=== PATIENT | female | born 1990 | race Caucasian/White ===

== ENCOUNTER → 2019-02-10 14:11 | Outpatient (CLI) | payer OTHER, SELFPAY | PROVIDERS: PCP Family Medicine; Visit Provider Nurse Practitioner | DX: G47.30 Sleep apnea, unspecified (principal); R06.83 Snoring | CPT/HCPCS: 95806 ==

== ENCOUNTER → 2019-05-26 11:44 | Outpatient (CLI) | payer OTHER, SELFPAY ==
--- NOTE | 2019-05-26 11:48 | XR_ITS ---
PROCEDURE: XR CHEST 2V CLINICAL HISTORY: SOB COMPARISON: No exams were available for comparison FINDINGS: The cardiomediastinal silhouette and pulmonary vascularity are within normal limits. The lungs are clear without infiltrates, suspicious nodules, or pleural effusions. Calcified granuloma is present in the right middle lobe. No acute bony findings. IMPRESSION: No acute findings. Dictated by: Dom Madison MD 05/26/2019 12:09 Electronically signed by Dom Madison MD in [place] 05/26/2019 12:09
--- NOTE | 2019-05-26 12:10 | ECG_ITS ---
APPROVED REPORT Exam: Resting ECG HR:104 bpm ECG Measurements Heart Rate 104 AXES MS 162 P 44 QRSd 94 QRS 69 QT 346 T 32 QTc 454 <Conclusion> Sinus tachycardia Late r wave progression - unchanged from prior Abnormal ECG Electronically signed by : Bc Ross, 05/26/2019 17:22:54
== END ==
PROVIDERS: PCP Nurse Practitioner; Visit Provider Nurse Practitioner
DX: R07.9 Chest pain, unspecified (principal); R06.02 Shortness of breath
CPT/HCPCS: 71046; 93005

== ENCOUNTER → 2019-05-31 12:49 | Outpatient (CLI) | payer OTHER, SELFPAY ==
--- NOTE | 2019-05-31 12:53 | CA_ITS ---
APPROVED REPORT EXAM: Comprehensive 2D, Doppler, and color-flow Echocardiogram Outside Barrel Lathe Operator: Mohini Kim RVT Ht: 5 ft 4 in Wt: 313lbs BSA: 2.37 BP: 123/64 mmHg Indications: Chest Pain, Obesity, Palpitations M-Mode Dimensions RVDd 1.90 cm (0.9-2.6) LA Diam 2.70 cm (1.9-4.0) LVDd 4.50 cm (3.5-5.7) Ao Diam 2.30 cm (2.0-3.7) AV Cusp 2.00 cm (1.5-2.6) IVSd 1.10 cm (0.6-1.1) PWd 0.90 cm (0.6-1.1) EF (Teich) 81.10% FS 49.60% Left Ventricle Right atrium is normal size, left ventricle is normal size, there is no concentric left ventricular hypertrophy, visually estimated ejection fraction 55% with no regional wall motion abnormality. Diastolic parameters are within normal range. Right Ventricle Right atrium right ventricular normal size and contractility. Aortic Valve Aortic valve is grossly normal. There is no aortic stenosis or aortic insufficiency. Mitral Valve Mitral valve is grossly normal, there is trace mitral regurgitation. Tricuspid Valve Tricuspid valve is grossly normal, there is trace tricuspid regurgitation. Pulmonic Valve Pulmonic valve is poorly visualized. Great Vessels Aortic root is normal size. Pericardium No significant pericardial effusion noted. Conclusion 1. Normal left ventricular size, preserved left ventricular systolic function, visually estimated ejection fraction 55% with no regional wall motion abnormality. Diastolic parameters are within normal range. 2. Trace mitral and tricuspid regurgitation. 3. No significant pericardial effusion noted. Electronically signed by : Elliott Gutierrez, 06/01/2019 13:31:52
== END ==
PROVIDERS: PCP Nurse Practitioner; Visit Provider Nurse Practitioner
DX: R00.2 Palpitations (principal); R07.9 Chest pain, unspecified
CPT/HCPCS: 93225; 93226; 93306

== ENCOUNTER → 2019-08-29 08:25 | Outpatient (CLI) | payer OTHER, SELFPAY ==
[2019-08-29 09:27] LABS: Basophils # 0.1 K/mm3 (0-0.2); Basophils % 0.7 % (0.1-2.0); Eosinophils # 0.2 K/mm3 (0.0-0.4); Eosinophils % 1.9 % (0.1-12.0); Hematocrit 38.1 % (37.0-47.0); Hemoglobin 12.1 g/dL (12.2-16.2); Lymphocytes % 22.1 % (10-50); Mean Corpuscular HGB Conc 31.7 g/dL (31.8-35.4); Mean Corpuscular Hemoglobin 25.5 pg (27.0-31.2); Mean Corpuscular Volume 80.4 fl (81-99); Mean Platelet Volume 7.9 fl (7.4-10.4); Monocytes # 0.4 K/mm3 (0.1-1.0); Monocytes % 4.2 % (1.7-9.3); Neutrophils # 6.4 K/mm3 (1.8-7.8); Neutrophils % 71.1 % (37.0-80.0); Platelet Count 305 K/mm3 (142-424); Red Blood Count 4.74 M/mm3 (4.20-5.40); Red Cell Distribution Width 14.9 % (11.5-17.5); White Blood Count 8.9 K/mm3 (4.8-10.8)
[2019-09-01 00:07] LABS: F002-IgE Milk <0.10 kU/L (Class 0); F003-IgE Codfish <0.10 kU/L (Class 0); F017-IgE Hazelnut (Filbert) <0.10 kU/L (Class 0); F018-IgE Brazil Nut <0.10 kU/L (Class 0); F020-IgE Almond <0.10 kU/L (Class 0); F024-IgE Shrimp <0.10 kU/L (Class 0); F040-IgE Tuna <0.10 kU/L (Class 0); F041-IgE Salmon <0.10 kU/L (Class 0); F147-IgE Flounder <0.10 kU/L (Class 0); F256-IgE Walnut <0.10 kU/L (Class 0); F338-IgE Scallop <0.10 kU/L (Class 0); Immunoglobulin E, Total 243 IU/mL (6-495)
[2019-09-01 09:36] LABS: Vitamin D 25 Hydroxy 21.5 ng/mL (30.0-100.0)
[2019-09-01 10:35] LABS: F013-IgE Peanut <0.10 kU/L (Class 0); F369-IgE Catfish <0.10 kU/L (Class 0)
[2019-09-05 17:08] LABS: F352 IgE Ara h8 <0.10 kU/L (Class 0); F447 IgE Ara h6 <0.10 kU/L (Class 0)
[2019-09-07 06:36] LABS: F092- IgE Banana 0.42 kU/L (Class I)
== END ==
PROVIDERS: Visit Provider Allergy & Immunology
DX: J45.50 Severe persistent asthma, uncomplicated (principal); T78.1XXA Other adverse food reactions, not elsewhere classified, initial encounter
CPT/HCPCS: 36415; 82652; 82785; 85025; 86003; 86008

== ENCOUNTER → 2021-01-22 11:25 | Outpatient (CLI) | payer OTHER, SELFPAY | PROVIDERS: PCP Nurse Practitioner; Visit Provider Nurse Practitioner | DX: Z20.822 Contact with and (suspected) exposure to COVID-19 (principal) | CPT/HCPCS: U0003 ==

== ENCOUNTER 2021-01-23 08:51 | Outpatient (CLI) | payer OTHER, SELFPAY ==
[2021-01-23] VITALS (7 sets, daily range): BP systolic 120–143; BP diastolic 65–98; PULSE 97–108; RESP 16–20; TEMP 36.8–37.3; O2SAT 97–98
== END 2021-01-23 11:43 | disposition home or self-care (01) ==
PROVIDERS: PCP Nurse Practitioner; Visit Provider Nurse Practitioner
DX: U07.1 COVID-19 (principal)
CPT/HCPCS: 96365

== ENCOUNTER → 2022-02-12 06:00 | Outpatient (CLI) | payer OTHER, SELFPAY ==
[2022-02-11 17:40] LABS: Basophils # 0.1 K/mm3 (0-0.2); Basophils % 1.5 % (0.1-2.0); Eosinophils # 0.1 K/mm3 (0.0-0.4); Hematocrit 42.9 % (37.0-47.0); Hemoglobin 13.3 g/dL (12.2-16.2); Lymphocytes % 27.3 % (10-50); Mean Corpuscular HGB Conc 31.1 g/dL (31.8-35.4); Mean Corpuscular Hemoglobin 26.2 pg (27.0-31.2); Mean Corpuscular Volume 84.4 fl (81-99); Mean Platelet Volume 10.5 fl (7.4-10.4); Monocytes # 0.4 K/mm3 (0.1-1.0); Monocytes % 5.7 % (1.7-9.3); Neutrophils # 4.6 K/mm3 (1.8-7.8); Neutrophils % 63.5 % (37.0-80.0); Platelet Count 187 K/mm3 (142-424); Red Blood Count 5.08 M/mm3 (4.20-5.40); Red Cell Distribution Width 15.4 % (11.5-17.5); White Blood Count 7.3 K/mm3 (4.8-10.8)
[2022-02-11 19:31] LABS: Alanine Aminotransferase 37 U/L (12-78); Albumin/Globulin Ratio 1.2 (1.1-1.8); Alkaline Phosphatase 141 U/L (38-126); Aspartate Amino Transferase 34 U/L (14-36); Blood Urea Nitrogen 11 mg/dl (7-17); Calcium 9.4 mg/dl (8.4-10.2); Carbon Dioxide 24 mmol/L (22.0-30.0); Chloride 104 mmol/L (98-107); Estimated Glomerular Filt Rate 145 ml/min (>60); GFR (African American) 175 ML/MIN (>60); Globulin 3.4 g/dL (1.3-3.2); Glucose 65 mg/dl (74-100); Sodium 140 mmol/L (136-145); Total Protein,Serum 7.4 g/dl (6.3-8.2)
[2022-02-11 19:52] LABS: Bilirubin,Total < 0.1 mg/dl (0.2-1.3)
[2022-02-11 20:01] LABS: Thyroid Stimulating Hormone 1.45 uIU/mL (0.465-4.68)
[2022-02-11 20:20] LABS: Vitamin B12 602 pg/mL (239-931)
[2022-02-11 20:42] LABS: Hemoglobin A1C 5.7 % (4.0-6.0)
== END ==
PROVIDERS: PCP Nurse Practitioner; Visit Provider Nurse Practitioner
DX: F41.8 Other specified anxiety disorders (principal); K21.9 Gastro-esophageal reflux disease without esophagitis; E55.9 Vitamin D deficiency, unspecified; J30.9 Allergic rhinitis, unspecified; Z13.1 Encounter for screening for diabetes mellitus; Z79.899 Other long term (current) drug therapy
CPT/HCPCS: 80053; 80164; 82306; 82607; 83036; 84443; 85025

== ENCOUNTER → 2022-05-26 09:09 | Outpatient (CLI) | payer OTHER, SELFPAY ==
[2022-05-26 18:12] LABS: Chloride 99 mmol/L (98-107)
[2022-05-26 18:13] LABS: Potassium 4.4 mmoL/L (3.5-5.1); Sodium 139 mmol/L (136-145)
[2022-05-26 18:15] LABS: Alanine Aminotransferase 24 U/L (12-78); Albumin Level 4.1 g/dl (3.5-5.0); Albumin/Globulin Ratio 1.1 (1.1-1.8); Alkaline Phosphatase 143 U/L (38-126); Anion Gap 17.4 mEq/L (5-15); Aspartate Amino Transferase 31 U/L (14-36); Bilirubin,Total 0.5 mg/dl (0.2-1.3); Blood Urea Nitrogen 7 mg/dl (7-17); Carbon Dioxide 27 mmol/L (22.0-30.0); Estimated Glomerular Filt Rate 145 ml/min (>60); GFR (African American) 175 ML/MIN (>60); Globulin 3.6 g/dL (1.3-3.2); Total Protein,Serum 7.7 g/dl (6.3-8.2)
[2022-05-26 18:16] LABS: Calcium 9.4 mg/dl (8.4-10.2); Chol/HDL Ratio 5.4 (1-3.5); Cholesterol 217 mg/dl (140-200); Glucose 82 mg/dl (74-100); HDL Cholesterol 40 mg/dl (40-60); Triglycerides 194 mg/dl (30-150); VLDL Cholesterol 39 mg/dL (0-40)
[2022-05-26 18:27] LABS: Direct LDL Cholesterol 121.19 mg/dL (100-129)
[2022-05-26 18:46] LABS: Thyroid Stimulating Hormone 1.69 uIU/mL (0.465-4.68)
== END ==
PROVIDERS: PCP Nurse Practitioner; Visit Provider Nurse Practitioner
DX: Z00.00 Encounter for general adult medical examination without abnormal findings (principal); Z13.1 Encounter for screening for diabetes mellitus; Z13.220 Encounter for screening for lipoid disorders; Z13.228 Encounter for screening for other metabolic disorders; Z13.29 Encounter for screening for other suspected endocrine disorder; Z79.899 Other long term (current) drug therapy
CPT/HCPCS: 80053; 80061; 84443

== ENCOUNTER → 2022-05-29 13:10 | Outpatient (CLI) | payer OTHER, SELFPAY ==
[2022-05-29 14:20] LABS: Basophils # 0.1 K/mm3 (0-0.2); Basophils % 1.1 % (0.1-2.0); Eosinophils # 0.3 K/mm3 (0.0-0.4); Hematocrit 40.2 % (37.0-47.0); Lymphocytes % 22.1 % (10-50); Mean Corpuscular HGB Conc 32.4 g/dL (31.8-35.4); Mean Corpuscular Hemoglobin 26.8 pg (27.0-31.2); Mean Corpuscular Volume 82.8 fl (81-99); Mean Platelet Volume 8.5 fl (7.4-10.4); Monocytes # 0.5 K/mm3 (0.1-1.0); Monocytes % 5.1 % (1.7-9.3); Neutrophils # 6.3 K/mm3 (1.8-7.8); Neutrophils % 68.7 % (37.0-80.0); Platelet Count 224 K/mm3 (142-424); Red Blood Count 4.85 M/mm3 (4.20-5.40); Red Cell Distribution Width 15.3 % (11.5-17.5); White Blood Count 9.1 K/mm3 (4.8-10.8)
[2022-05-29 14:28] LABS: Hemoglobin A1C 5.8 % (4.0-6.0)
== END ==
PROVIDERS: PCP Nurse Practitioner; Visit Provider Nurse Practitioner
DX: Z00.00 Encounter for general adult medical examination without abnormal findings (principal); Z13.1 Encounter for screening for diabetes mellitus; Z13.220 Encounter for screening for lipoid disorders; Z13.228 Encounter for screening for other metabolic disorders; Z13.29 Encounter for screening for other suspected endocrine disorder; Z79.899 Other long term (current) drug therapy
CPT/HCPCS: 36415; 83036; 85025

== ENCOUNTER → 2022-10-19 09:50 | Outpatient (CLI) | payer OTHER, SELFPAY ==
[2022-10-19 18:13] LABS: Hemoglobin A1C 8.2 % (4.0-6.0)
[2022-10-19 18:16] LABS: Chloride 105 mmol/L (98-107); Sodium 139 mmol/L (136-145)
[2022-10-19 18:18] LABS: Alanine Aminotransferase 58 U/L (12-78); Alkaline Phosphatase 129 U/L (38-126); Aspartate Amino Transferase 56 U/L (14-36); Bilirubin,Total 0.6 mg/dl (0.2-1.3); Blood Urea Nitrogen 10 mg/dl (7-17); Estimated Glomerular Filt Rate 117 ml/min (>60); GFR (African American) 142 ML/MIN (>60)
[2022-10-19 18:19] LABS: Albumin Level 4.1 g/dl (3.5-5.0); Albumin/Globulin Ratio 1.1 (1.1-1.8); Calcium 9.1 mg/dl (8.4-10.2); Carbon Dioxide 20 mmol/L (22.0-30.0); Chol/HDL Ratio 5.2 (1-3.5); Cholesterol 203 mg/dl (140-200); Globulin 3.6 g/dL (1.3-3.2); Glucose 104 mg/dl (74-100); HDL Cholesterol 39 mg/dl (40-60); Total Protein,Serum 7.7 g/dl (6.3-8.2); Triglycerides 179 mg/dl (30-150); VLDL Cholesterol 36 mg/dL (0-40)
[2022-10-19 18:30] LABS: Direct LDL Cholesterol 130.27 mg/dL (100-129)
== END ==
LOC: LAB.DROPOF 10-20 06:27
PROVIDERS: PCP Nurse Practitioner; Visit Provider Nurse Practitioner
DX: E78.5 Hyperlipidemia, unspecified (principal); R73.01 Impaired fasting glucose; E66.9 Obesity, unspecified; Z68.43 Body mass index [BMI] 50.0-59.9, adult
CPT/HCPCS: 80053; 80061; 83036

== ENCOUNTER → 2022-10-21 13:45 | Outpatient (CLI) | payer OTHER, SELFPAY ==
--- NOTE | 2022-10-21 13:45 | US_ITS ---
PROCEDURE INFORMATION: Exam: US Left Breast, Complete, Abscess Evaluation Exam date and time: 10/21/2022 2:23 PM Age: 31 years old Clinical indication: Left breast palpable lump with associated inflammation. Concern for abscess TECHNIQUE: Imaging protocol: Left Ultrasound of the breast with image documentation. All quadrants and retroareolar regions evaluated. Exam focused on the search and evaluation for abscess. Exam is an emergent request and a non-BIRADS study. COMPARISON: No relevant prior studies available. FINDINGS: Breast: Intradermal hypoechoic 0.7 x 0.7 x 0.3 cm structure has features of a inflamed sebaceous cyst. Circumscribed echogenic structures diagnostic of benign lipomas measure 1.8 cm along the 10 o'clock axis 6 cm from the nipple and 1.0 cm along the 8 o'clock axis 7 cm from the nipple and 0.7 cm left 5 o'clock 7 cm from the nipple No suspicious solid or cystic mass is present. No architectural distortion or shadowing is present. No axillary adenopathy is present. IMPRESSION: The palpable lump correlates with a subcentimeter intradermal cystic lesion with features of a sebaceous cyst. No suspicious subcutaneous or parenchymal mass/collection is present There are several benign lipomas throughout the breast
== END ==
LOC: RAD 13:45
PROVIDERS: PCP Nurse Practitioner; Visit Provider Nurse Practitioner
DX: N61.1 Abscess of the breast and nipple (principal)
CPT/HCPCS: 76641

== ENCOUNTER 2022-10-24 15:05 | Emergency (ER) | payer OTHER, SELFPAY ==
[2022-10-24 15:15] VITALS: BP 138/81; PULSE 87; RESP 18; TEMP 36.9; O2SAT 98; BMI 59.5
--- NOTE | 2022-10-24 15:27 | EXP.UTC ---
Discharge Plan Disposition Patient Disposition: Home, Self-Care Condition: Good Prescriptions Prescriptions: New hydroxyzine HCl 25 mg tablet 25 mg PO TID PRN (Reason: itching) Qty: 30 0RF triamcinolone acetonide 0.5 % cream 1 applic topical TID Qty: 30 0RF No Action albuterol sulfate 90 mcg/actuation aerosol powdr breath activated 2 inh inhalation Q4-6H PRN (Reason: shortness of breath or wheezing) Qty: 1 1RF medroxyprogesterone 10 mg tablet 10 mg PO DAILY topiramate 25 mg tablet 25 mg PO BID Qty: 60 2RF lamotrigine 25 mg tablet 25 mg PO .COMPLEX Qty: 60 0RF Rx Instructions: 25 mg orally take one tablet daily x 14 days, then increase to 2 tablets daily x 7 days, then increase to 3 tablets daily x 7 days omeprazole 20 mg capsule,delayed release(DR/EC) 20 mg PO DAILY Qty: 90 1RF montelukast 10 mg tablet See Rx Instructions .ROUTE .COMPLEX Qty: 90 1RF Dose Instruction: TAKE 1 TABLET BY MOUTH EVERY DAY Rx Instructions: TAKE 1 TABLET BY MOUTH EVERY DAY epinephrine [EpiPen 2-Quan] 0.3 mg/0.3 mL auto-injector 0.3 mg IM Q5-15M PRN (Reason: anaphylaxis) Qty: 2 1RF Rx Instructions: do not exceed 3 doses per episode metformin 500 mg tablet extended release 24 hr 500 mg PO DAILY Qty: 30 2RF atorvastatin 10 mg tablet 10 mg PO DAILY Qty: 30 2RF (DME) Blood Glucose Test Strip See Rx Instructions .MEDSUPPLY Qty: 50 11RF Rx Instructions: As directed (DME) blood-glucose meter [Blood Glucose Monitoring] Kit See Rx Instructions .MEDSUPPLY Qty: 1 0RF Rx Instructions: As directed (DME) lancets Misc See Rx Instructions .MEDSUPPLY Qty: 100 11RF Rx Instructions: As directed Referrals Follow up/Referrals: Christie Mora APRN [Primary Care Provider] - See instructions Clinical Impressions Clinical Impression: Allergic drug rash Instructions Patient Instructions: DI for Rash Discharge ED Provider: Marylin Blue [facility] HPI General Stated complaint: rash on neck and arms from allergic reaction Time Seen by Provider: 10/24/22 15:26 History of Present Illness Provider Complaint: Pt relates that 4 days ago she too Lamictal and broke out in a rash on her neck and arms. She denies taking the medication since and relates that she took Benadryl and her arms look much better. She continues to have a large rash in the front of her neck that itches. Related Data Home Medications Medication Instructions Recorded Confirmed medroxyprogesterone 10 mg tablet 10 mg PO DAILY 05/26/22 10/19/22 Previous Rx's Medication Instructions Recorded albuterol sulfate 90 mcg/actuation 2 inh inhalation Q4-6H PRN 03/09/22 breath activated powder inhaler shortness of breath or wheezing #1 ea montelukast 10 mg tablet See Rx Instructions .Route 06/23/22 .COMPLEX #90 tabs omeprazole 20 mg capsule,delayed 20 mg PO DAILY #90 caps 06/23/22 release topiramate 25 mg tablet 25 mg PO BID #60 tabs 09/21/22 epinephrine 0.3 mg/0.3 mL 0.3 mg (0.3 mL) IM Q5-15M PRN 10/08/22 injection, auto-injector (EpiPen anaphylaxis #2 ea 2-Quan) lamotrigine 25 mg tablet 25 mg PO .COMPLEX #60 tabs 10/19/22 atorvastatin 10 mg tablet 10 mg PO DAILY #30 tabs 10/20/22 blood sugar diagnostic (Blood #50 ea 10/20/22 Glucose Test strips) blood-glucose meter (Blood Glucose #1 ea 10/20/22 Monitoring kit) lancets #100 ea 10/20/22 metformin 500 mg tablet,extended 500 mg PO DAILY #30 tabs 10/20/22 release 24 hr hydroxyzine HCl 25 mg tablet 25 mg PO TID PRN itching #30 tabs 10/24/22 triamcinolone acetonide 0.5 % 1 applic topical TID #30 grams 10/24/22 topical cream Allergies Allergy/AdvReac Type Severity Reaction Status Date / Time Sulfa (Sulfonamide Allergy Unknown Verified 10/19/22 08:51 Antibiotics) sertraline [From Zoloft] AdvReac Severe Seizure Verified 10/19/22 08:51 [facility] Disclaimer: The information contained
[2022-10-24 15:45] VITALS: BP 138/81; PULSE 87; RESP 18; TEMP 36.9; O2SAT 98
== END 2022-10-24 15:47 | disposition home or self-care (01) ==
PROVIDERS: Emergency Provider Nurse Practitioner Family; PCP Nurse Practitioner
DX: R21 Rash and other nonspecific skin eruption (principal); T42.6X5A Adverse effect of other antiepileptic and sedative-hypnotic drugs, initial encounter
CPT/HCPCS: 99204; 99212; 99214; G0463

== ENCOUNTER → 2022-11-26 18:27 | Outpatient (CLI) | payer OTHER, SELFPAY | PROVIDERS: PCP Nurse Practitioner; Visit Provider Nurse Practitioner | DX: J06.9 Acute upper respiratory infection, unspecified (principal); R05.9 Cough, unspecified | CPT/HCPCS: 87635; C9803; U0003; U0005 ==

== ENCOUNTER → 2023-01-04 23:21 | Outpatient (CLI) | payer OTHER, SELFPAY ==
[2023-01-04 19:45] LABS: Alanine Aminotransferase 76 U/L (12-78); Albumin Level 4.3 g/dl (3.5-5.0); Albumin/Globulin Ratio 1.2 (1.1-1.8); Alkaline Phosphatase 122 U/L (38-126); Anion Gap 17.9 mEq/L (5-15); Aspartate Amino Transferase 57 U/L (14-36); Bilirubin,Total 0.7 mg/dl (0.2-1.3); Blood Urea Nitrogen 8 mg/dl (7-17); Calcium 8.9 mg/dl (8.4-10.2); Carbon Dioxide 20 mmol/L (22.0-30.0); Chloride 107 mmol/L (98-107); Chol/HDL Ratio 4.9 (1-3.5); Cholesterol 201 mg/dl (140-200); Estimated Glomerular Filt Rate 144 ml/min (>60); GFR (African American) 174 ML/MIN (>60); Globulin 3.6 g/dL (1.3-3.2); Glucose 107 mg/dl (74-100); HDL Cholesterol 41 mg/dl (40-60); Potassium 3.9 mmoL/L (3.5-5.1); Sodium 141 mmol/L (136-145); Total Protein,Serum 7.9 g/dl (6.3-8.2); Triglycerides 130 mg/dl (30-150); VLDL Cholesterol 26 mg/dL (0-40)
[2023-01-04 19:57] LABS: Direct LDL Cholesterol 119.62 mg/dL (100-129)
== END ==
LOC: LAB.DROPOF 23:22
PROVIDERS: PCP Nurse Practitioner; Visit Provider Nurse Practitioner
DX: E11.9 Type 2 diabetes mellitus without complications (principal); E78.5 Hyperlipidemia, unspecified; Z79.84 Long term (current) use of oral hypoglycemic drugs
CPT/HCPCS: 80053; 80061

== ENCOUNTER → 2023-01-05 19:28 | Outpatient (CLI) | payer OTHER, SELFPAY ==
[2023-01-05 20:26] LABS: Creatinine,Urine Random 194 mg/dL (Not Estab.)
[2023-01-05 20:27] LABS: Microalbumin/Creatinine Ratio 5.2
== END ==
PROVIDERS: PCP Nurse Practitioner; Visit Provider Nurse Practitioner
DX: E11.9 Type 2 diabetes mellitus without complications (principal); E78.5 Hyperlipidemia, unspecified; Z79.84 Long term (current) use of oral hypoglycemic drugs
CPT/HCPCS: 82043; 82570

== ENCOUNTER → 2023-03-01 23:42 | Outpatient (CLI) | payer OTHER, SELFPAY ==
[2023-03-01 19:02] LABS: Alanine Aminotransferase 62 U/L (12-78); Albumin Level 4.3 g/dl (3.5-5.0); Alkaline Phosphatase 120 U/L (38-126); Anion Gap 20.2 mEq/L (5-15); Aspartate Amino Transferase 60 U/L (14-36); Bilirubin,Total 0.5 mg/dl (0.2-1.3); Blood Urea Nitrogen 11 mg/dl (7-17); Calcium 9.2 mg/dl (8.4-10.2); Carbon Dioxide 19 mmol/L (22.0-30.0); Chloride 107 mmol/L (98-107); Chol/HDL Ratio 5.4 (1-3.5); Cholesterol 199 mg/dl (140-200); Estimated Glomerular Filt Rate 98 ml/min (>60); GFR (African American) 118 ML/MIN (>60); Globulin 4.1 g/dL (1.3-3.2); Glucose 97 mg/dl (74-100); HDL Cholesterol 37 mg/dl (40-60); Potassium 4.2 mmoL/L (3.5-5.1); Sodium 142 mmol/L (136-145); Total Protein,Serum 8.4 g/dl (6.3-8.2); Triglycerides 123 mg/dl (30-150); VLDL Cholesterol 25 mg/dL (0-40)
[2023-03-01 19:14] LABS: Direct LDL Cholesterol 118.63 mg/dL (100-129)
[2023-03-01 19:51] LABS: Hemoglobin A1C 5.6 % (4.0-6.0)
== END ==
LOC: LAB.DROPOF 23:43
PROVIDERS: PCP Nurse Practitioner; Visit Provider Nurse Practitioner
DX: E11.9 Type 2 diabetes mellitus without complications (principal); Z79.899 Other long term (current) drug therapy
CPT/HCPCS: 80053; 80061; 83036

== ENCOUNTER → 2023-03-03 12:00 | Outpatient (CLI) | payer OTHER, SELFPAY | PROVIDERS: PCP Nurse Practitioner; Visit Provider Nurse Practitioner | DX: J02.9 Acute pharyngitis, unspecified (principal) ==

== ENCOUNTER → 2023-05-03 11:42 | Outpatient (CLI) | payer OTHER, SELFPAY ==
[2023-05-03 18:59] LABS: Hemoglobin A1C 5.4 % (4.0-6.0)
[2023-05-03 19:02] LABS: Alanine Aminotransferase 42 U/L (12-78); Albumin/Globulin Ratio 1.1 (1.1-1.8); Alkaline Phosphatase 117 U/L (38-126); Aspartate Amino Transferase 40 U/L (14-36); Bilirubin,Total 0.8 mg/dl (0.2-1.3); Blood Urea Nitrogen 9 mg/dl (7-17); Calcium 9.1 mg/dl (8.4-10.2); Carbon Dioxide 18 mmol/L (22.0-30.0); Chloride 108 mmol/L (98-107); Cholesterol 191 mg/dl (140-200); Estimated Glomerular Filt Rate 144 ml/min (>60); GFR (African American) 174 ML/MIN (>60); Globulin 3.6 g/dL (1.3-3.2); Glucose 102 mg/dl (74-100); HDL Cholesterol 38 mg/dl (40-60); Sodium 137 mmol/L (136-145); Total Protein,Serum 7.6 g/dl (6.3-8.2); Triglycerides 99 mg/dl (30-150); Uric Acid 5.8 mg/dl (2.5-6.2); VLDL Cholesterol 20 mg/dL (0-40)
[2023-05-03 19:14] LABS: Direct LDL Cholesterol 126.28 mg/dL (100-129)
[2023-05-03 19:19] LABS: 25-OH Vitamin D, Total 59.6 ng/mL (30-100)
[2023-05-03 19:32] LABS: Thyroid Stimulating Hormone 1.07 uIU/mL (0.465-4.68)
[2023-05-03 19:38] LABS: Basophils # 0.1 K/mm3 (0-0.2); Basophils % 0.7 % (0.1-2.0); Eosinophils # 0.2 K/mm3 (0.0-0.4); Eosinophils % 2.8 % (0.1-12.0); Hematocrit 41.8 % (37.0-47.0); Hemoglobin 13.6 g/dL (12.2-16.2); Lymphocytes # 2.2 K/mm3 (0.7-4.5); Lymphocytes % 25.8 % (10-50); Mean Corpuscular HGB Conc 32.4 g/dL (31.8-35.4); Mean Corpuscular Hemoglobin 27.4 pg (27.0-31.2); Mean Corpuscular Volume 84.3 fl (81-99); Mean Platelet Volume 10.4 fl (7.4-10.4); Monocytes # 0.5 K/mm3 (0.1-1.0); Monocytes % 5.6 % (1.7-9.3); Neutrophils # 5.6 K/mm3 (1.8-7.8); Platelet Count 227 K/mm3 (142-424); Red Blood Count 4.96 M/mm3 (4.20-5.40); Red Cell Distribution Width 14.8 % (11.5-17.5); White Blood Count 8.6 K/mm3 (4.8-10.8)
[2023-05-03 19:51] LABS: Vitamin B12 564 pg/mL (239-931)
[2023-05-05 10:22] LABS: RA Latex Turbid. <10.0 IU/mL (<14.0)
[2023-05-05 15:03] LABS: Anti-Centromere B Antibodies <0.2 AI (0.0-0.9); Anti-DNA (DS) Ab Qn <1 IU/mL (0-9); Anti-Jo-1 <0.2 AI (0.0-0.9); Anti-Smith Antibody <0.2 AI (0.0-0.9); Antichromatin Antibodies <0.2 AI (0.0-0.9); Antiscleroderma-70 Antibodies <0.2 AI (0.0-0.9); RNP Antibodies 0.3 AI (0.0-0.9); Sjogren's Anti-SS-A <0.2 AI (0.0-0.9); Sjogren's Anti-SS-B 0.6 AI (0.0-0.9)
[2023-05-05 15:10] LABS: Antinuclear Antibodies, IFA Negative (.)
== END ==
LOC: LAB.DROPOF 05-04 11:42
PROVIDERS: PCP Nurse Practitioner; Visit Provider Nurse Practitioner
DX: E11.9 Type 2 diabetes mellitus without complications (principal); E78.5 Hyperlipidemia, unspecified; G43.909 Migraine, unspecified, not intractable, without status migrainosus; R53.83 Other fatigue; E66.9 Obesity, unspecified; Z68.43 Body mass index [BMI] 50.0-59.9, adult
CPT/HCPCS: 80053; 80061; 82306; 82607; 83036; 84443; 84550; 85025; 86038; 86225; 86235; 86431

== ENCOUNTER 2023-07-26 18:41 | Outpatient (CLI) | payer OTHER, SELFPAY ==
[2023-07-26 18:51] LABS: Alanine Aminotransferase 31 U/L (12-78); Albumin Level 3.8 g/dl (3.5-5.0); Albumin/Globulin Ratio 1.1 (1.1-1.8); Alkaline Phosphatase 117 U/L (38-126); Anion Gap 12.9 mEq/L (5-15); Aspartate Amino Transferase 32 U/L (14-36); Bilirubin,Total 0.6 mg/dl (0.2-1.3); Blood Urea Nitrogen 9 mg/dl (7-17); Calcium 8.8 mg/dl (8.4-10.2); Carbon Dioxide 23 mmol/L (22.0-30.0); Chloride 108 mmol/L (98-107); Estimated Glomerular Filt Rate 117 ml/min (>60); GFR (African American) 141 ML/MIN (>60); Globulin 3.6 g/dL (1.3-3.2); Glucose 103 mg/dl (74-100); Potassium 3.9 mmoL/L (3.5-5.1); Sodium 140 mmol/L (136-145); Total Protein,Serum 7.4 g/dl (6.3-8.2)
[2023-07-26 22:12] LABS: Hemoglobin A1C 5.6 % (4.0-6.0)
== END 2023-07-26 23:59 ==
LOC: LAB.DROPOF 18:42
PROVIDERS: PCP Nurse Practitioner; Visit Provider Nurse Practitioner
DX: E11.9 Type 2 diabetes mellitus without complications (principal)
CPT/HCPCS: 80053; 83036

== ENCOUNTER 2023-10-25 10:42 | Outpatient (CLI) | payer OTHER, SELFPAY ==
[2023-10-25 18:56] LABS: Alanine Aminotransferase 30 U/L (12-78); Albumin Level 3.8 g/dl (3.5-5.0); Albumin/Globulin Ratio 1.1 (1.1-1.8); Alkaline Phosphatase 118 U/L (38-126); Anion Gap 12.9 mEq/L (5-15); Aspartate Amino Transferase 31 U/L (14-36); Bilirubin,Total 0.5 mg/dl (0.2-1.3); Blood Urea Nitrogen 11 mg/dl (7-17); Calcium 9.3 mg/dl (8.4-10.2); Carbon Dioxide 21 mmol/L (22.0-30.0); Chloride 109 mmol/L (98-107); Chol/HDL Ratio 4.3 (1-3.5); Cholesterol 215 mg/dl (140-200); Estimated Glomerular Filt Rate 143 ml/min (>60); GFR (African American) 173 ML/MIN (>60); Globulin 3.4 g/dL (1.3-3.2); Glucose 105 mg/dl (74-100); HDL Cholesterol 50 mg/dl (40-60); Potassium 3.9 mmoL/L (3.5-5.1); Sodium 139 mmol/L (136-145); Total Protein,Serum 7.2 g/dl (6.3-8.2); Triglycerides 128 mg/dl (30-150); VLDL Cholesterol 26 mg/dL (0-40)
[2023-10-25 19:08] LABS: Direct LDL Cholesterol 124.95 mg/dL (100-129)
[2023-10-25 19:21] LABS: 25-OH Vitamin D, Total 65.2 ng/mL (30-100)
[2023-10-25 19:26] LABS: Creatinine,Urine Random 136 mg/dL (Not Estab.)
[2023-10-25 19:30] LABS: Microalbumin/Creatinine Ratio 4.7; Thyroid Stimulating Hormone 1.77 uIU/mL (0.465-4.68)
[2023-10-25 19:49] LABS: Vitamin B12 475 pg/mL (239-931)
[2023-10-25 20:19] LABS: Hemoglobin A1C 5.5 % (4.0-6.0)
== END 2023-10-25 23:59 | disposition home or self-care (01) ==
LOC: LAB.DROPOF 10-26 10:42
PROVIDERS: PCP Nurse Practitioner; Visit Provider Nurse Practitioner
DX: E11.9 Type 2 diabetes mellitus without complications (principal); E78.5 Hyperlipidemia, unspecified; E66.9 Obesity, unspecified; Z68.43 Body mass index [BMI] 50.0-59.9, adult; Z79.899 Other long term (current) drug therapy
CPT/HCPCS: 80053; 80061; 82043; 82306; 82570; 82607; 83036; 84443

== ENCOUNTER 2024-01-17 10:20 | Outpatient (CLI) | payer OTHER, SELFPAY ==
[2024-01-17 19:33] LABS: Alanine Aminotransferase 18 U/L (12-78); Albumin/Globulin Ratio 1.1 (1.1-1.8); Alkaline Phosphatase 114 U/L (38-126); Aspartate Amino Transferase 22 U/L (14-36); Bilirubin,Total 0.6 mg/dl (0.2-1.3); Blood Urea Nitrogen 12 mg/dl (7-17); Calcium 9.4 mg/dl (8.4-10.2); Carbon Dioxide 22 mmol/L (22.0-30.0); Chloride 108 mmol/L (98-107); Estimated Glomerular Filt Rate 143 ml/min (>60); GFR (African American) 173 ML/MIN (>60); Globulin 3.6 g/dL (1.3-3.2); Glucose 102 mg/dl (74-100); Sodium 138 mmol/L (136-145); Total Protein,Serum 7.6 g/dl (6.3-8.2)
[2024-01-17 19:47] LABS: Hemoglobin A1C 6.7 % (4.0-6.0)
== END 2024-01-17 23:59 | disposition home or self-care (01) ==
LOC: LAB.DROPOF 01-18 10:20
PROVIDERS: PCP Nurse Practitioner; Visit Provider Nurse Practitioner
DX: E11.9 Type 2 diabetes mellitus without complications (principal)
CPT/HCPCS: 80053; 83036

== ENCOUNTER 2024-04-04 08:03 | Outpatient (CLI) | payer OTHER, SELFPAY ==
--- NOTE | 2024-04-04 08:04 | CA_ITS ---
APPROVED REPORT EXAM: Comprehensive 2D, Doppler, and color-flow Echocardiogram Maintenance Controller: Brittany Hudson CRT Ht: 5 ft 3 in Wt: 299lbs BSA: 2.29 BP: 136/84 mmHg Indications: Chest Pain, Diabetes, Palpitations, Fatigue, recent covid 2D Dimensions LA Volume 29.10 mL LA Volume Index 12.40 mL/m2 (M/F) 16-34 M-Mode Dimensions RVDd 2.10 cm (0.9-2.6) LA Diam 2.91 cm (1.9-4.0) LVDd 4.73 cm (3.5-5.7) LVDs 3.13 cm (3.5-5.7) IVSd 1.28 cm (0.6-1.1) PWd 0.85 cm (0.6-1.1) EF (Teich) 62.70% FS 33.80% EDV (Teich) 103.90 mL TAPSE 1.84 (<1.7) ESV (Teich) 38.80 mL LV Diastology E Decel Time 150 (160-240 msec) E/A Ratio 1.61 MED A' 6.90 cm/s LAT A' 8.00 cm/s Aortic Valve AO Peak GR. 9.10 mmHg Mitral Valve MV E Max Ankit. 104.0 (40-130 cm/s) MV A Velocity 65.0 (40-130 cm/s) E/A Ratio 1.61 MV PHT 44.0 ms Pulmonary Valve PV Peak Velocity 100.0 (50-150 cm/s) Tricuspid Valve TR P. Velocity 245.00 cm/s RAP Estimate 10.00 mmHg RVSP 34.10 mmHg Left Ventricle The left ventricle is normal size. The left ventricular systolic function is normal. The left ventricular ejection fraction is within the normal range. There is normal left ventricular wall thickness. There is normal LV segmental wall motion. The left ventricular diastolic function is normal. LVEF is 55%. Right Ventricle The right ventricle is normal size. The right ventricular systolic function is normal. Atria The left atrium size is normal. The right atrium size is normal. The interatrial septum is not well-visualized. Aortic Valve The aortic valve opens well. There is no aortic valvular stenosis. No aortic regurgitation is present. Mitral Valve The mitral valve is normal in structure. No evidence of mitral valve stenosis. There is no mitral valve regurgitation noted. Tricuspid Valve Tricuspid valve is grossly normal in structure and function. Trace tricuspid regurgitation. There is insufficient TR jet to estimate RVSP. Pulmonic Valve The pulmonary valve is normal in structure. Trace pulmonic regurgitation. Great Vessels The aortic root is normal in size. The ascending aorta is normal in size. IVC is normal in size and collapses >50% with inspiration. Pericardium There is no pericardial effusion. Other Information Study Quality: Technically Difficult Conclusion Technically difficult study due to poor acoustic windows. Normal biventricular systolic function. No significant valvular stenosis or regurgitation. Electronically signed by : Celeste Montgomery MD 04/04/2024 12:13:05
--- NOTE | 2024-04-04 08:40 | ECG_ITS ---
APPROVED REPORT Exam: Resting ECG HR:69 bpm ECG Measurements Heart Rate 69 AXES NC 159 P 9 QRSd 96 QRS 73 QT 385 T 28 QTc 405 Conclusion SINUS RHYTHM WITH SINUS ARRHYTHMIA LOW QRS VOLTAGE IN PRECORDIAL LEADS [QRS DEFLECTION < 1.0 mV IN CHEST LEADS] BORDERLINE ECG UNCONFIRMED REPORT Electronically signed by : Bc Ross MD 04/05/2024 07:34:09
--- NOTE | 2024-04-04 08:44 | XR_ITS ---
FINAL REPORT CLINICAL HISTORY: LT SIDE CHEST PAIN COMPARISON: None FINDINGS: The chest exam is hypoinflated. There is evidence of prior granulomatous disease. No acute pulmonary density is evident. There is no evidence of effusion or other pleural disease. The mediastinum has a normal appearance. Mild cardiomegaly is present. IMPRESSION: Hypoinflated lung casillas, no acute pulmonary density is evident. Mild cardiomegaly. Reviewed, Interpreted and Dictated by Maricel Bay MD Transcribed by Lorie Malagon Authenticated and [facility]
== END 2024-04-04 23:59 | disposition home or self-care (01) ==
LOC: RT 08:04
PROVIDERS: PCP Nurse Practitioner; Visit Provider Nurse Practitioner
DX: R07.9 Chest pain, unspecified (principal); R00.2 Palpitations; U07.1 COVID-19
CPT/HCPCS: 71046; 93005; 93306

== ENCOUNTER 2024-06-05 09:00 | Outpatient (CLI) | payer OTHER, SELFPAY ==
[2024-06-05 18:16] LABS: Basophils # 0.1 K/mm3 (0-0.2); Basophils % 1.3 % (0.1-2.0); Eosinophils # 0.2 K/mm3 (0.0-0.4); Eosinophils % 2.7 % (0.1-12.0); Hematocrit 43.3 % (37.0-47.0); Hemoglobin 13.5 g/dL (12.2-16.2); Lymphocytes # 1.8 K/mm3 (0.7-4.5); Lymphocytes % 25.9 % (10-50); Mean Corpuscular HGB Conc 31.1 g/dL (31.8-35.4); Mean Corpuscular Volume 83.6 fl (81-99); Mean Platelet Volume 10.3 fl (7.4-10.4); Monocytes # 0.4 K/mm3 (0.1-1.0); Monocytes % 5.5 % (1.7-9.3); Neutrophils # 4.5 K/mm3 (1.8-7.8); Neutrophils % 64.7 % (37.0-80.0); Platelet Count 195 K/mm3 (142-424); Red Blood Count 5.18 M/mm3 (4.20-5.40); Red Cell Distribution Width 15.4 % (11.5-17.5)
[2024-06-05 18:54] LABS: Alanine Aminotransferase 33 U/L (12-78); Albumin/Globulin Ratio 1.3 (1.1-1.8); Alkaline Phosphatase 107 U/L (38-126); Anion Gap 14.9 mEq/L (5-15); Aspartate Amino Transferase 24 U/L (14-36); Bilirubin,Total 0.6 mg/dl (0.2-1.3); Blood Urea Nitrogen 7 mg/dl (7-17); Calcium 9.2 mg/dl (8.4-10.2); Carbon Dioxide 19 mmol/L (22.0-30.0); Chloride 112 mmol/L (98-107); Chol/HDL Ratio 3.9 (1-3.5); Cholesterol 162 mg/dl (140-200); Estimated Glomerular Filt Rate 116 ml/min (>60); GFR (African American) 140 ML/MIN (>60); Globulin 3.2 g/dL (1.3-3.2); Glucose 87 mg/dl (74-100); HDL Cholesterol 42 mg/dl (40-60); Magnesium 2.1 mg/dl (1.6-2.3); Phosphorous 3.4 mg/dl (2.5-4.5); Potassium 3.9 mmoL/L (3.5-5.1); Sodium 142 mmol/L (136-145); Total Protein,Serum 7.2 g/dl (6.3-8.2); Triglycerides 79 mg/dl (30-150); VLDL Cholesterol 16 mg/dL (0-40)
[2024-06-05 19:06] LABS: Direct LDL Cholesterol 107.16 mg/dL (100-129)
[2024-06-05 19:18] LABS: 25-OH Vitamin D, Total 79.6 ng/mL (30-100)
[2024-06-05 19:24] LABS: Thyroid Stimulating Hormone 0.67 uIU/mL (0.465-4.68)
[2024-06-05 19:27] LABS: HIV (1&2) Antibody Rapid NONREACTIVE (NONREACTIVE)
[2024-06-05 19:43] LABS: Vitamin B12 574 pg/mL (239-931)
[2024-06-05 20:18] LABS: Creatinine,Urine Random 224 mg/dL (Not Estab.); Microalbumin/Creatinine Ratio 4.6
[2024-06-05 20:31] LABS: Hemoglobin A1C 5.3 % (4.0-6.0)
[2024-06-07 08:22] LABS: HBsAg Screen Negative (Negative); HCV Ab Non Reactive (Non Reactive); Hep A Ab, IGM Negative (Negative); Hep B Core Ab, IgM Negative (Negative)
== END 2024-06-05 23:59 | disposition home or self-care (01) ==
LOC: LAB.DROPOF 06-06 08:40
PROVIDERS: PCP Nurse Practitioner; Visit Provider Nurse Practitioner
DX: Z00.00 Encounter for general adult medical examination without abnormal findings (principal); E11.9 Type 2 diabetes mellitus without complications; E78.5 Hyperlipidemia, unspecified; J45.909 Unspecified asthma, uncomplicated; Z13.0 Encounter for screening for diseases of the blood and blood-forming organs and certain disorders involving the immune mechanism
CPT/HCPCS: 80050; 80053; 80061; 80074; 82043; 82306; 82570; 82607; 83036; 83735; 84100; 84443; 85025; 87389

== ENCOUNTER 2024-08-29 21:12 | Outpatient (CLI) | payer OTHER, SELFPAY ==
[2024-08-29 21:49] LABS: Basophils # 0.1 K/mm3 (0-0.2); Basophils % 0.8 % (0.1-2.0); Eosinophils # 0.1 K/mm3 (0.0-0.4); Eosinophils % 1.4 % (0.1-12.0); Hematocrit 43.7 % (37.0-47.0); Hemoglobin 13.2 g/dL (12.2-16.2); Lymphocytes # 2.2 K/mm3 (0.7-4.5); Lymphocytes % 22.9 % (10-50); Mean Corpuscular HGB Conc 30.2 g/dL (31.8-35.4); Mean Corpuscular Hemoglobin 25.5 pg (27.0-31.2); Mean Corpuscular Volume 84.5 fl (81-99); Mean Platelet Volume 12.4 fl (7.4-10.4); Monocytes # 0.6 K/mm3 (0.1-1.0); Monocytes % 6.2 % (1.7-9.3); Neutrophils # 6.4 K/mm3 (1.8-7.8); Neutrophils % 68.4 % (37.0-80.0); Platelet Count 200 K/mm3 (142-424); Red Blood Count 5.17 M/mm3 (4.20-5.40); Red Cell Distribution Width 14.6 % (11.5-17.5); White Blood Count 9.4 K/mm3 (4.8-10.8)
[2024-08-29 22:22] LABS: Creatinine,Urine Random 166 mg/dL (Not Estab.)
[2024-08-29 22:24] LABS: Albumin Level 4.2 g/dl (3.5-5.0); Chloride 107 mmol/L (98-107); Potassium 4.4 mmoL/L (3.5-5.1); Sodium 140 mmol/L (136-145)
[2024-08-29 22:27] LABS: Alanine Aminotransferase 16 U/L (12-78); Albumin/Globulin Ratio 1.2 (1.1-1.8); Alkaline Phosphatase 108 U/L (38-126); Anion Gap 14.4 mEq/L (5-15); Aspartate Amino Transferase 22 U/L (14-36); Bilirubin,Total 0.6 mg/dl (0.2-1.3); Blood Urea Nitrogen 10 mg/dl (7-17); Calcium 9.4 mg/dl (8.4-10.2); Carbon Dioxide 23 mmol/L (22.0-30.0); Estimated Glomerular Filt Rate 116 ml/min (>60); GFR (African American) 140 ML/MIN (>60); Globulin 3.4 g/dL (1.3-3.2); Glucose 80 mg/dl (74-100); Total Protein,Serum 7.6 g/dl (6.3-8.2)
[2024-08-29 22:51] LABS: Thyroid Stimulating Hormone 1.56 uIU/mL (0.465-4.68)
[2024-08-29 23:34] LABS: Hemoglobin A1C 5.2 % (4.0-6.0)
== END 2024-08-29 23:59 | disposition home or self-care (01) ==
LOC: LAB.DROPOF 21:13
PROVIDERS: PCP Nurse Practitioner; Visit Provider Nurse Practitioner
DX: R29.818 Other symptoms and signs involving the nervous system (principal); E11.9 Type 2 diabetes mellitus without complications
CPT/HCPCS: 80053; 82043; 82570; 83036; 84443; 85025

== ENCOUNTER 2024-12-26 09:05 | Outpatient (CLI) | payer OTHER, SELFPAY ==
[2024-12-26 19:20] LABS: Hemoglobin A1C 5.2 % (4.0-6.0)
[2024-12-26 19:57] LABS: Alanine Aminotransferase 15 U/L (12-78); Albumin Level 3.8 g/dl (3.5-5.0); Alkaline Phosphatase 93 U/L (38-126); Anion Gap 7.1 mEq/L (5-15); Aspartate Amino Transferase 19 U/L (14-36); Bilirubin,Total 0.4 mg/dl (0.2-1.3); Blood Urea Nitrogen 14 mg/dl (7-17); Calcium 9.5 mg/dl (8.4-10.2); Carbon Dioxide 23 mmol/L (22.0-30.0); Chloride 112 mmol/L (98-107); Chol/HDL Ratio 4.2 (1-3.5); Cholesterol 189 mg/dl (140-200); Estimated Glomerular Filt Rate 96 ml/min (>60); GFR (African American) 117 ML/MIN (>60); Globulin 3.7 g/dL (1.3-3.2); Glucose 97 mg/dl (74-100); HDL Cholesterol 45 mg/dl (40-60); Potassium 4.1 mmoL/L (3.5-5.1); Sodium 138 mmol/L (136-145); Total Protein,Serum 7.5 g/dl (6.3-8.2); Triglycerides 107 mg/dl (30-150); VLDL Cholesterol 21 mg/dL (0-40)
[2024-12-26 20:08] LABS: Direct LDL Cholesterol 105.63 mg/dL (100-129)
--- OUTSIDE RECORDS SUMMARY | 2024-12-27 09:30 | XMS_ITS | Clinical Summary ---
Author Organization [facility] Address [address] [place] [address] Phone Care Team Providers Care Standards Analyst Name Role Phone Shaw Avitia Primary Care Provider [phone] Kristy Reese MD Unavailable [phone] Allergies Active Allergy Reactions Criticality Noted Date Comments Adhesive Tape-Silicones Rash High 03/18/2016 Banana Swelling 01/11/2020 Lips and throat Lactase Itching 05/10/2015 Latex Swelling 01/11/2020 Shellfish Containing Products Anaphylaxis,Itching High 03/04/2016 Lip swelling Sulfa (Sulfonamide Antibiotics) Other (See Comments) 04/20/2012 Unsure of reaction. Happened as infant Yeast, Dried Itching 05/10/2015 Medications * This document contains information received from the source organization and may not represent a complete record from that organization. albuterol (PROVENTIL HFA;VENTOLIN HFA) 90 mcg/actuation Inhl HFA Aerosol Inhaler Inhale 2 Puffs into the lungs every 6 hours as needed for Wheezing. Active omeprazole (PRILOSEC) 20 mg Oral Capsule, Delayed Release(E.C.) Take 20 mg by mouth daily. Active cetirizine (ZYRTEC) 10 mg Oral Tablet Take 10 mg by mouth daily. Active Cholecalciferol , Vitamin D3, 125 mcg (5,000 unit) Oral Tablet Take by mouth. Active montelukast sodium (SINGULAIR ORAL) Take by mouth. Active aspirin 81 mg Oral Tablet, Delayed Release (E.C.) Take by mouth daily. Active divalproex (DEPAKOTE ER) 250 mg Oral Tablet Sustained Release 24 hr Take 500 mg by mouth 2 times daily. Active Diclofenac Potassium (CAMBIA) 50 mg Oral Powder in Packet Take by mouth as needed. Active fluconazole (DIFLUCAN) 150 mg Oral TabletIndicatio ns:Yeast infection Take 1 Tablet by mouth every 72 hours. 2 Tablet 02/26/2022 Active medroxyPROGESTE Remigio (PROVERA) 10 mg Oral TabletIndicatio ns:Abnormal uterine bleeding Take 1 Tablet by mouth daily. 10 Tablet 12 05/01/2022 Active topiramate (TOPAMAX) 50 mg Oral Tablet TAKE 1.5 TABLETS BY MOUTH EVERY DAY IN THE MORNING AND 1 TAB IN THE EVENING Active Active Problems Problem Noted Date Diagnosed Date Somatic symptom disorder, moderate 09/15/2019 Psychophysiological insomnia 08/04/2019 Generalized anxiety disorder with panic attacks 03/17/2019 Recurrent major depressive disorder, in full rem ission 03/17/2019 Class 3 severe obesity witho ut serious comorbidity with body mass index (BMI) of 50.0 to 59.9 in adult 05/20/2018 Asthma 08/12/2012 Resolved Problems Problem Noted Date Diagnosed Date Resolved Date delivery delivered 07/02/2015 01/15/2017 Breech presentation 06/17/2015 07/02/20 15 Overview (06/17/2015): As of 35 week U/S - scheduled for repeat C/S Obesity affecting in third trimester 06/10/2015 07/02/2015 Diet controlled gestational diabetes mellitus in third trimester 06/03/2015 07/02/2015 Overview (06/03/2015): Diet controlled Weekly BPPs scheduled Glucose intolerance of 04/08/2015 06/10/2015 Overview (04/08/2015): GTT 75/717/167/113 Rh negative status during pr egnancy in first trimester 12/20/2014 07/02/2015 Overview (06/10/2015): S/p Rhogam at 28 weeks Encounter for supervision of other normal 12/20/2014 07/02/2015 Overview (07/02/2015): pt L=19 PNL wnl Declined quad/CF Anatomy U/S wnl x limited - repeat in 4 weeks wnl Declined flu shot, TDap done History of delivery , currently 12/20/2014 07/02/2015 Overview (06/03/2015): G1 C/S for hand presentation Desires repeat C/S- repeat scheduled for 07/02 with [place] Abdominal pain 03/09/2013 12/20/2014 Post-dates 12/22/2012 013 Compound presentation of fetus 12/22/2012 03/09/2013 Breech presentation 11/21/2012 12/16/19 13 Supervision of normal 08/12/2012 03/09/2013 Rh negative state in antepartum period 08/12/2012 03/09/2013 Immunizations Immunization Administration Dates Next Due Rho (D) Immune Globulin 07/04/2015,07/03,04/17/2015,12/23/2012,10/13/19 13 Tdap 12/23/2012 Surgical History Surgery Date Site/Laterality Comments WISDOM TOOTH EXTRACTION EXTERNAL AUDITORY CANAL RECONSTRUCTION SECTION 12/22/2012 N/A Surgeon: Mulu Rivera MD; Location: [facility]; Service: TYMPANOSTOMY TUBE PLACEMENT SECTION 07/02/2015 N/A REPEAT SECTION (39) low transverse uterine incision @ 0851; Surgeon: Yared Motley MD; Location: [facility]; Service: Gynecology Medical devices from this surgery are in the Medical Devices section. CHOLECYSTECTOMY, LAPAROSCOPIC 03/12/2016 N/A LAPAROSCOPIC CHOLECYSTECTOMY; Surgeon: Reza Hodges MD; Location: [facility]; Service: General Medical History Medical History Date Comments Anxiety Depression Asthma Rescue inhaler Heartburn Diabetes mellitus (HCC) boderlin e gestational. Checks sugars, but no meds. Post-operative nausea and vomiting Family History Medical History Relation Name Comments Asthma Brother Jorge Rashes/Skin Problems Brother Jorge Asthma Father Jg Diabetes Father Jg High Cholesterol Father Jg Cancer Maternal Grandmother Rashmi Diabetes Maternal Grandmother Rashmi Heart Failure Maternal Grandmother Rashmi Rheum Arthritis Maternal Grandmother Rashmi Thyroid Disease Maternal Grandmother Rashmi Asthma Mother Renetta Cancer Mother Renetta skin ca Clotting Disorder Mother Renetta Factor 5 Migraines Mother Renetta Osteoarthritis Mother Renetta Asthma Sister Daphney Mult Sclerosis Sister Daphney Relation Name Status Comments Brother Jorge Father Jg Alive Maternal Grandfather unknown Other Maternal Grandmother Rashmi Mother Renetta Alive Paternal Grandfather Paternal Grandmother Sister Daphney Social History Tobacco Use Types Packs/Day Years Used Date Smoking Tobacco: Never Smokeless Tobacco: Never Tobacco Cessation:Counseling Given: Not Answered Alcohol Use Standard Drinks/Week Comments No 0 (1 standard drink = 0.6 oz pur e alcohol) Sexually Active Control Partners Comments Yes Surgical Male vasectomy Comments No Sex and Gender Information Value Date Recorded Sex Assigned at Not on file Legal Sex Female 6:35 AM EDT Gender Identity Not on file Sexual Orientation Not on file Obstetrics History Para Term AB IAB SAB Ectopic Multiple Livin g Live Births 3 2 2 0 1 0 1 0 0 2 2 Date Outcome GA Total Labor Labor/2nd/3rd Weight Sex Type Anes PTL Teena A1 A5 Name Clin SAB 2012 Term 40w 4d 7 lb 10.2 oz (3.464 kg) M CSP Epidur al N Livin g 9 9 KYLAH NICHOLS, Mulu moon MD Delivery Location:[facility] 2014 Term 39w 0d 0h 01m 0h 01m 6 lb 14 oz (3.118 kg) F FIELD AUTOMOBILE ADJUSTER Spinal N Livin g 8 9 Fco Motley MD Complications:Status post re peat low transverse section Delivery Location:[facility] Comments:none Last Filed Vital Signs Vital Sign Reading Time Taken Comments Blood Pressure 128/74 04/13/2023 11:29 AM EDT Pulse 115 09/08/2019 1:37 PM EST Temperature 37.3 C (99.2 F) 01/11/2020 9:10 AM EDT Respiratory Rate 14 09/08/2019 1:37 PM EST Oxygen Saturation 97% 09/08/2019 1:37 PM EST Inhaled Oxygen Concentration - - Weight 137.9 kg (304 lb) 04/13/2023 11:29 AM EDT Height 162.6 cm (5' 4 ) 04/13/2023 11:29 AM EDT Body Mass Index 52.18 04/13/2023 11:29 AM EDT Plan of Treatment Health Maintenance Due Date Last Done Comments Annual Wellness Exam 10/24/1994 Hepatitis B Vaccine (1 of 3 - 19+ 3-dose series) 10/24/2010 Pneumococcal Vaccine 0-49 (1 of 2 - PCV) 10/24/2010 HPV/Pap Cotest 10/24/2021 Cervical Cancer Screening 01/10/2023 Pap Smear 01/10/2023 01/11/2020, 11/03/2018, 12/20/2014, Additional history exists COVID-19 Vaccine ( season) 2024 Influenza Vaccine (Season Ended) 2025 08/17/2006 DTaP/TDaP/Td (8 - Td or Tdap) 05/30/2025 05/30/2015, 12/23/2012, 12/30/1995, Additional history exists Meningococcal B Vaccine Aged Out No l onger eligible based on patient's age to complete this topic Goals Goal Patient Goal Type Associated Problems Recent Progress Patient-Stated? Author Blood Pressure < 140/90 Blood Pressure 128/74(2022 11:29 AM EDT) No Toner, Angela L BMI (Calculated) < 30 General 52.3(04/13/20 11:29 AM EDT) No Toner, Angela L Maintain a healthy diet, exercise regularly and maintain an ideal body weight General No Toner, Angela L HEMOGLOBIN A1C < 7.0 Result Component No Toner, Angela L Medical Devices Implanted Type Area Hydro Excavation Operator Device Identifier Shelf Expiration Date Model / Serial / Lot Interceed Adhesive Barrier 3 X 4 - [id number] Implanted:Qty: 1 on 07/02/2015 by Yared Motley MD at [facility] N/A: Abdomen J&J:ETHICON:JEYSON ANDERSON 09/09/2019 [id number] / / [id number] Procedures Procedure Name Priority Date/Time Associated Diagnosis Comments HYDROPULPER CYTOLOGY REQUEST (PAP ONLY) Routine 01/11/2020 9:40 AM EDT Well woman exam with routine gynecological exam from Last 3 Months or Most Recently Relevant to Health Maintenance Results * HYDROPULPER CYTOLOGY REQUEST (PAP ONLY) (01/11/2020 9:40 AM EDT) CASE REPORT Gynecologic Cytology Report Case: [id number] Authorizing Provider: Nancy Boland APRN Collected: 01/11/2020939 Ordering Location: [facility] Edg Received: 01/11/2020939 First Screen: Sarah Quiroz CT Specimen: LIQUID-BASED PAP - CERVICAL/ENDOCERV ICAL, Cervix, Endocervical 01/15/2020 10:26 AM EDT [facility] PAP FINAL DIAGNOSIS Negative for intraepithelial lesion or malignancy 01/15/2020 10:26 AM EDT [facility] at 1026 EDT MICROSCOPIC DESCRIPTION Microscopic examination is performed and the findings corroborate the diagnosis. 01/15/2020 10:26 AM EDT [facility] PAP SMEAR ADEQUACY Satisfactory for evaluation 01/15/2020 10:26 AM EDT [facility] ENDOCERVICAL T-ZONE Transformation zone absent. 01/15/2020 10:26 AM EDT [facility] EMBEDDED IMAGES 0 10:26 AM EDT [facility] PAP DISCLAIMER The Pap Smear is a screening test that aids in the detection of cervical cancer and cancer precursors. Both false positive and false negative results can occur. The test should be used at regular intervals, and positive results should be confirmed before definitive therapy. Processed using the ThinPrep Workers Compensation Administrator Automated cytology screening device ([employer]). 01/15/2020 10:26 AM EDT [facility] Thin Prep ENDOCERVICAL STRUCTURE / Unknown 01/11/2020 9:40 AM EDT 01/11/2020 9:40 AM EDT Nancy Boland APRN CYTOLOGY ORDERABLES Final Result [facility] [address] [place] [address] from Last 3 Months or Most Recently Relevant to Health Maintenance Insurance [place] [id number] Advance Directives For more information, please contact: [phone] * Full Code (Latest Code Status on File) Date Activated Date Inactivated Comments 07/02/2015 10:36 AM 07/04/2015 7:07 PM * Full Code Date Activated Date Inactivated Comments 12/22/2012 6:54 AM 12/24/2012 5:16 PM Care Teams Standards Analyst Relationship Specialty Start Date End Date Shaw Avitia [address] [place] [address] PCP - General Family Medicine 10/11/12 Kristy Reese MD [address] [address] Medical Oncologist Internal Medicine-Medical Oncology 09/08/19
--- OUTSIDE RECORDS SUMMARY | 2024-12-27 09:30 | XMS_ITS | Clinical Summary ---
Author Organization [facility] Address [address] [place] [address] Care Team Providers Care Stopper Grinder Name Role Phone Pcp, No Primary Care Provider [phone] Source Comments This information has been disclosed to you from confidential records protectedfrom disclosure by state law. You shall make no further disclosure of thisinformation without the specific, written, and informed release of theindividual to whom it pertains, or as otherwise permitted by law. A generalauthorization for the release of medical or other information is not sufficientfor the purposes of therelease of HIV test results or diagnoses. [id number] Allergies Active Allergy Reactions Criticality Noted Date Comments Banana Anaphylaxis High 04/20/2022 Chocolate Flavor Other (See Comments) 2 SHOEMAKER [place] And Derivatives Anaphylaxis High 04/20/2022 Throat swells Latex Anaphylaxis,Itching High 04/20/2022 Peanut Other (See Comments) 04/20/2022 coughing Shellfish Derived Anaphylaxis High 04/20/2022 Lips swell Sulfa (Sulfonamide Antibiotics) Other (See Comments) 04/20/2022 unknown Tomato Rash Low 04/20/2022 Rash on face Sertraline Other (See Comments) 04/20/2022 Worsens sz event Medications omeprazole (PRILOSEC) 20 MG capsule Take 20 mg by mouth daily. 2 Active montelukast (SINGULAIR) 10 mg tablet Take 10 mg by mouth daily. 2 Active divalproex (DEPAKOTE) [address] tablet Take 250 mg by mouth 2 times a day. 2 Active EPINEPHrine (EPI-PEN) 0.3 mg/0.3 mL AtIn injection INJECT INTO OUTER THIGH FOR ALLERGIC REACTION. CALL 911 AFTER USE. 1 Active aspirin 81 MG chewable tablet Chew 81 mg by mouth at bedtime. Active albuterol 90 mcg/actuation Inhl inhaler Inhale 2 puffs into the lungs every 6 hours as needed for Wheezing or Shortness of Breath. Active cholecalciferol , vitamin D3, 1000 units tablet Take 5,000 Units by mouth daily. Active diclofenac potassium (CAMBIA) 50 mg PwPk Take by mouth. Activ e Family History Medical History Relation Comments Diabetes Father Factor V Leiden deficiency Mother Hypertension Mother Relation Status Comments Father Mother Social History Tobacco Use Types Packs/Day Years Used Date Smoking Tobacco: Never Smokeless Tobacco: Never Alcohol Use Standard Drinks/Week Comments Never 0 (1 standard drink = 0.6 oz pur e alcohol) AUDIT-C Answer Date Recorded Q1: How often do you have a drink containing alcohol? Never 04/20/2022 Q2: How many drinks containi ng alcohol do you have on a typical day when you are drinking? Patient does not drink Q3: How often do you have si x or more drinks on one occasion? Never 04/20/2022 Comments Unknown Sex and Gender Information Value Date Recorded Sex Assigned at Not on file Legal Sex Female 9:16 AM EST Gender Identity Not on file Sexual Orientation Not on file Last Filed Vital Signs Vital Sign Reading Time Taken Comments Blood Pressure 133/74 04/22/2022 11:50 AM EDT Pulse 109 04/22/2022 11:50 AM EDT Temperature 36.9 C (98.5 F) 04/22/2022 11:50 AM EDT Respiratory Rate 16 04/22/2022 11:50 AM EDT Oxygen Saturation 95% 04/22/2022 11:50 AM EDT Inhaled Oxygen Concentration 95% 04/22/2022 1 1:50 AM EDT Weight 158.3 kg (349 lb) 04/20/2022 6:34 PM EDT Height 162.6 cm (5' 4 ) 04/20/2022 6:34 PM EDT Body Mass Index 59.91 04/20/2022 6:34 PM EDT Plan of Treatment Health Maintenance Due Date Last Done Comments Hepatitis C Screening ([place]) 1991 Depression Screening 10/24/2009 HIV Screening 10/24/2009 Immunization: DTaP/Tdap/Td ( 1 - Tdap) 10/24/2010 Immunization: Hepatitis B (1 of 3 - 19+ 3-dose series) 10/24/2010 Cervical Cancer Screening/Pa p Smear (MyChart) 10/24/2021 Alcohol Misuse Screening 03/09/2023 03/09/2022 Immunization: COVID-19 ( season) 2024 Immunization: Influenza (MyC chawla) (Season Ended) 2025 Immunization: Pneumococcal Aged Out N o longer eligible based on patient's age to complete this topic Insurance Advance Directives For more information, please contact: [phone] * Full Code (Latest Code Status on File) Date Activated Date Inactivated Comments 04/20/2022 2:02 PM 04/22/2022 9:23 PM Care Teams Stopper Grinder Relationship Specialty Start Date End Date Pcp, No No Address PCP - General 02/09/22
== END 2024-12-26 23:59 | disposition home or self-care (01) ==
LOC: LAB.DROPOF 12-27 09:27
PROVIDERS: PCP Nurse Practitioner; Visit Provider Nurse Practitioner
DX: E78.5 Hyperlipidemia, unspecified (principal); E11.9 Type 2 diabetes mellitus without complications; E66.9 Obesity, unspecified; R29.818 Other symptoms and signs involving the nervous system
CPT/HCPCS: 80053; 80061; 83036

== ENCOUNTER 2025-01-09 14:20 | Emergency (ER) | payer OTHER, SELFPAY ==
[2025-01-09] VITALS (12 sets, daily range): BP systolic 109–139; BP diastolic 60–79; PULSE 54–89; RESP 14–22; TEMP 36.9–37.1; O2SAT 95–100; BMI 51.2
--- NOTE | 2025-01-09 14:20 | ECG_ITS ---
APPROVED REPORT Exam: Resting ECG HR:72 bpm ECG Measurements Heart Rate 72 AXES IL 163 P 31 QRSd 94 QRS 34 QT 356 T 46 QTc 380 Conclusion SINUS RHYTHM WITH MARKED SINUS ARRHYTHMIA LOW QRS VOLTAGE IN PRECORDIAL LEADS [QRS DEFLECTION < 1.0 mV IN CHEST LEADS] no STEMI Electronically signed by : CARY SR, 01/11/2025 20:48:47
--- NOTE | 2025-01-09 14:24 | PC.NURSE ---
FSBS is 82. RN notified
--- NOTE | 2025-01-09 14:28 | XR_ITS ---
FINAL REPORT CLINICAL HISTORY: Precordial chest pain COMPARISON: 04/04/2024 FINDINGS: The heart size is normal. The mediastinum is normal. There is no focal infiltrate or edema. Stable calcified granuloma is noted in the right mid lung. There are no pleural effusions. There is no pneumothorax. There is no osseous abnormality. IMPRESSION: No acute cardiopulmonary process Reviewed, Interpreted and Dictated by Abdias Joshi MD Transcribed by Maddison James Authenticated and . [facility]
--- OUTSIDE RECORDS SUMMARY | 2025-01-09 14:32 | XMS_ITS | Clinical Summary ---
Author Organization [facility] Address [address] [place] [address] Care Team Providers Care Public Speaking Professor Name Role Phone Pcp, No Primary Care [...] therelease of HIV test results or diagnoses. [id number] Allergies Active Allergy Reactions Criticality Noted Date Comments Banana Anaphylaxis High 04/20/2022 Chocolate Flavor Other (See Comments) 2 SHOEMAKER [place] And Derivatives Anaphylaxis High 04/20/2022 Throat swells [...] Date Last Done Comments Hepatitis C Screening ([place]) 1991 Depression Screening 10/24/2009 HIV Screening 10/24/2009 [...] patient's age to complete this topic Insurance [facility]. [facility] Address: [facility] [id number] [place] [id number] Advance Directives For more information, please contact: [phone] * Full Code (Latest Code Status on File) Date Activated Date Inactivated Comments 04/20/2022 2:02 PM 04/22/2022 9:23 PM Care Teams Public Speaking Professor Relationship Specialty Start Date End Date Pcp, No No Address PCP - General 02/09/22
--- OUTSIDE RECORDS SUMMARY | 2025-01-09 14:32 | XMS_ITS | Clinical Summary ---
Author Organization [facility] Address [address] [place] [address] Phone Care Team Providers Care Administrative Clerk Name Role Phone Shaw Avitia Primary Care Provider [phone] Kristy Reese MD Unavailable [phone] Allergies Active Allergy Reactions Criticality Noted [...] 12/22/2012 N/A Surgeon: Mulu Rivera MD; Location: [facility]; Service: TYMPANOSTOMY TUBE PLACEMENT SECTION 07/02/2015 N/A REPEAT SECTION (39) low transverse uterine incision @ 0851; Surgeon: Yared Motley MD; Location: [facility]; Service: Gynecology Medical devices from this surgery are in the Medical Devices section. CHOLECYSTECTOMY, LAPAROSCOPIC 03/12/2016 N/A LAPAROSCOPIC CHOLECYSTECTOMY; Surgeon: Reza Hodges MD; Location: [facility]; Service: General Medical History Medical [...] 9 KYLAH NICHOLS, Mulu moon MD Delivery Location:[facility] 2014 Term 39w 0d 0h 01m 0h 01m 6 lb 14 oz (3.118 kg) F ASSISTANT PROFESSOR OF ENGLISH Spinal N Livin g 8 9 Fco Motley MD Complications:Status post re peat low transverse section Delivery Location:[facility] Comments:none Last Filed Vital Signs Vital [...] Angela L Medical Devices Implanted Type Area Computer Networking Instructor Adjunct Device Identifier Shelf Expiration Date Model / Serial / Lot Interceed Adhesive Barrier 3 X 4 - [id number] Implanted:Qty: 1 on 07/02/2015 by Yared Motley MD at [facility] N/A: Abdomen J&J:ETHICON:JEYSON ANDERSON 09/09/2019 [id number] / / [id number] Procedures Procedure Name Priority Date/Time Associated Diagnosis Comments UNIVERSITY LIBRARIAN CYTOLOGY REQUEST (PAP ONLY) Routine 01/11/2020 9:40 AM EDT Well woman exam with routine gynecological exam from Last 3 Months or Most Recently Relevant to Health Maintenance Results * UNIVERSITY LIBRARIAN CYTOLOGY REQUEST (PAP ONLY) (01/11/2020 9:40 AM EDT) CASE REPORT Gynecologic Cytology Report Case: [id number] Authorizing Provider: Nancy Boland APRN Collected: 01/11/2020939 Ordering Location: [facility] Edg Received: 01/11/2020939 First Screen: Sarah Quiroz CT Specimen: LIQUID-BASED PAP - CERVICAL/ENDOCERV ICAL, Cervix, Endocervical 01/15/2020 10:26 AM EDT [facility] PAP FINAL DIAGNOSIS Negative for intraepithelial lesion or malignancy 01/15/2020 10:26 AM EDT [facility] at 1026 EDT MICROSCOPIC DESCRIPTION Microscopic examination is performed and the findings corroborate the diagnosis. 01/15/2020 10:26 AM EDT [facility] PAP SMEAR ADEQUACY Satisfactory for evaluation 01/15/2020 10:26 AM EDT [facility] ENDOCERVICAL T-ZONE Transformation zone absent. 01/15/2020 10:26 AM EDT [facility] EMBEDDED IMAGES 0 10:26 AM EDT [facility] PAP DISCLAIMER The Pap Smear is a screening test that aids in the detection of cervical cancer and cancer precursors. Both false positive and false negative results can occur. The test should be used at regular intervals, and positive results should be confirmed before definitive therapy. Processed using the ThinPrep Practical Nurse Clinical Coordinator Automated cytology screening device (Turbocoating). 01/15/2020 10:26 AM EDT [facility] Thin Prep ENDOCERVICAL STRUCTURE / Unknown 01/11/2020 9:40 AM EDT 01/11/2020 9:40 AM EDT Nancy Boland APRN CYTOLOGY ORDERABLES Final Result [facility] [address] [place] [address] from Last 3 Months or Most Recently Relevant to Health Maintenance Insurance [place] [id number] Advance Directives For more information, please contact: [phone] * Full Code (Latest Code Status on File) Date Activated Date Inactivated Comments 07/02/2015 10:36 AM 07/04/2015 7:07 PM * Full Code Date Activated Date Inactivated Comments 12/22/2012 6:54 AM 12/24/2012 5:16 PM Care Teams Administrative Clerk Relationship Specialty Start Date End Date Shaw Avitia [address] [place] [address] PCP - General Family Medicine 10/11/12 Kristy Reese MD [address] [facility] [place] [address] Medical Oncologist Internal Medicine-Medical Oncology 09/08/19
--- NOTE | 2025-01-09 14:34 | ED_ITS ---
<Statement entered by Daphney Kohli DO - 01/09/25 23:44> I was consulted by the LATIA, and we discussed the complexity of the problems being addressed. I approved the treatment and management plan for this patient's care in the emergency department, thus performing a substantive portion of the medical decision making. Daphney Kohli DO Discharge Plan Disposition Patient Disposition: Home, Self-Care Prescriptions Prescriptions: No Action albuterol sulfate 90 mcg/actuation aerosol powdr breath activated 2 inh inhalation Q4-6H PRN (Reason: shortness of breath or wheezing) Qty: 1 1RF cetirizine [Zyrtec] 10 mg tablet 10 mg PO DAILY PRN omeprazole 20 mg capsule,delayed release(DR/EC) 20 mg PO DAILY Patient Comments: TAKE 1 CAPSULE BY MOUTH EVERY DAY fluconazole 150 mg tablet 150 mg PO WEEKLY Qty: 2 1RF triamcinolone acetonide 55 mcg aerosol,spray 2 spray intranasal DAILY Qty: 16.9 5RF Rx Instructions: administer into each nostril epinephrine [EpiPen 2-Quan] 0.3 mg/0.3 mL auto-injector 0.3 mg IM Q5-15M PRN (Reason: anaphylaxis) Qty: 2 1RF Rx Instructions: do not exceed 3 doses per episode montelukast 10 mg tablet See Rx Instructions .ROUTE .COMPLEX Qty: 90 1RF Dose Instruction: TAKE 1 TABLET BY MOUTH EVERY DAY Rx Instructions: TAKE 1 TABLET BY MOUTH EVERY DAY propranolol 10 mg tablet See Rx Instructions .ROUTE .COMPLEX Qty: 180 0RF Dose Instruction: TAKE 1 TABLET BY MOUTH TWICE A DAY NEEDED FOR ANXIETY Rx Instructions: TAKE 1 TABLET BY MOUTH TWICE A DAY NEEDED FOR ANXIETY topiramate 50 mg tablet See Rx Instructions .ROUTE .COMPLEX Qty: 180 1RF Dose Instruction: TAKE 3 TABLETS BY MOUTH TWICE DAILY Rx Instructions: TAKE 3 TABLETS BY MOUTH TWICE DAILY Referrals Follow up/Referrals: Provider,Referral, MD [Referring, Medical] - See instructions Activity Restrictions/Add. Instructions Additional Instructions/Restrictions: Today you were evaluated in the emergency department. Your lab work was overall unremarkable. We did note that on your CT scan you had a right lower lobe lung nodule, please follow-up with your PCP about this. Please try to see your PCP within the next 48 hours. Please return to the ED for worsening of condition. Clinical Impressions Clinical Impression: Headache, Lung nodule Instructions Patient Instructions: DI for Headache Print Language Print Language: Slovak Discharge ED Provider: Daphney Kohli General Adult HPI General Chief complaint: Chest Pain Stated complaint: chest pain Time Seen by Provider: 01/09/25 14:23 History of Present Illness HPI narrative: patient is a 34-year-old female PMHx psychogenic nonepileptic seizures, hyperlipidemia, anxiety, diabetes type 2 who presents to the ED for complaints of headache, chest pain, pelvic exam that started approximately 3 days ago. Denies Related Data Home Medications ?Medication ?Instructions ?Recorded ?Confirmed cetirizine 10 mg tablet (Zyrtec) 10 mg PO DAILY PRN 01/02/25 omeprazole 20 mg capsule,delayed 20 mg PO DAILY 01/02/25 release Previous Rx's ?Medication ?Instructions ?Recorded albuterol sulfate 90 mcg/actuation 2 inh inhalation Q4 -6H PRN 03/09/22 breath activated powder inhaler shortness of breath or wheezing #1 ea epinephrine 0.3 mg/0.3 mL 0.3 mg (0.3 mL) IM Q5-15M NC N 10/08/22 injection, auto-injector (EpiPen anaphylaxis #2 ea 2-Quan) montelukast 10 mg tablet See Rx Instructions .Route 1 07/15/23 .COMPLEX #90 tabs propranolol 10 mg tablet See Rx Instructions .Route 0 11/18/24 .COMPLEX #180 tabs topiramate 50 mg tablet See Rx Instructions .Route 0 12/03/24 .COMPLEX #180 tabs fluconazole 150 mg tablet 150 mg PO WEEKLY #2 tabs 09/05 triamcinolone acetonide 55 mcg 2 spray intranasal SYLVIE Y #16.9 mL 12/11/24 nasal spray aerosol Allergies Allergy/AdvReac Type Severity Reaction Status Date / Time adhesive Allergy Unknown Verified 01/02/25 08:22 latex Allergy Unknown Verified 01/02/25 08:22 shellfish derived Allergy Unknown Verified 01/02/25 08:22 Sulfa (Sulfonamide Allergy Unknown Verified 01/02/25 08:22 Antibiotics) sertraline (From Zoloft) AdvReac Severe Seizure Verified 01/02/25 08:22 lamotrigine AdvReac Unknown Rash Verified 01/02/25 08:22 [facility] Disclaimer: The information contained in this section may have been updated after the patient was seen, as this information can be updated by other users. Medical History Inclusion cyst of breast (~09/26/24) Transient neurological symptoms Encounter for annual health examination Upper respiratory tract infection due to COVID-19 virus Palpitations Left-sided chest pain Fatigue Migraine Anxiety with depression Type 2 diabetes mellitus without complications Hyperlipidemia IFG (impaired fasting glucose) Obesity Anxiety Depression Asthma Surgical History History of wisdom tooth extraction History of placement of ear tubes History of History of cholecystectomy Family History Other Cancer Diabetes Hyperlipidemia Hypertension Social History Smoking Status: Never smoker alcohol intake: never current occupational status: unemployed Travel in the last 8 weeks?: None Have you lived/traveled outside US in past 30 days?: No Contact w/someone who lives/traveled outside US past 30 days?: No Exposure to someone with infectious disease in past 14 days?: No Do you have a fever (greater than 100.4 F or 38 C)?: No Have you tested positive for COVID-19?: No Exposed to someone with COVID-19 in past 14 days?: No Do you have a sore throat?: No Do you have a cough?: No Do you have any weakness?: No Do you have any diarrhea?: No Are you experiencing any unusual bleeding?: No Do you have any muscle aches/pain?: No Do you have any abdominal pain?: No Are you experiencing loss of taste or smell?: No Other Medical History Have you received the Pneumonia Vaccine: No ROS Obtained: Yes Systems reviewed as appropriate & no additional complaints except as documented Physical Exam General General appearance: alert and in no apparent distress Head Head exam: atraumatic and normocephalic Eye Eye exam: Present normal appearance and PERRL ENT ENT exam: Present normal exam Neck Neck exam: Present normal inspection Chest Chest inspection: Present normal inspection and symmetric chest wall rise; Absent tenderness Respiratory Respiratory exam: Present normal lung sounds bilaterally Cardiovascular Cardiovascular exam: Present regular rate Abdominal Exam Abdominal exam: Present soft, tenderness (mild RLQ) and normal bowel sounds Extremities Exam Extremities exam: Present normal inspection and full ROM Back Exam Back exam: Present normal inspection and full ROM Neurological Exam Neurological exam: Present alert and oriented X3 Psychiatric Psychiatric exam: Present normal affect and normal mood Skin Skin exam: Present warm and dry Medical Decision Making Medical Records Screening: Per USPSTF and CDC recommendations, given the prevalence of disease in our region, it is our hospital?s policy to screen for HIV and viral Hepatitis for all patients aged 18 and over and those with ongoing risk factors. Johnny Inquiry Pt receiving controlled substance: No Vital Signs: 01/09/25 14:24 01/09/25 14:31 01/09/25 14:44 Temperature 98.4 F Temperature Source Oral Pulse Rate Pulse Rate [Right] 72 Respiratory Rate 16 17 18 Blood Pressure 127/79 115/78 Blood Pressure [Right Arm] 127/79 Blood Pressure Mean 94 84 Blood Pressure Mean [Right Arm] 95 02 Sat by Pulse Oximetry 95 Oxygen Delivery Method 01/09/25 15:11 01/09/25 15:15 01/09/25 15:15 Temperature Temperature Source Pulse Rate 89 89 54 L Pulse Rate [Right] Respiratory Rate 18 16 Blood Pressure 132/60 132/60 Blood Pressure [Right Arm] Blood Pressure Mean 84 Blood Pressure Mean [Right Arm] 02 Sat by Pulse Oximetry 98 98 Oxygen Delivery Method Room Air 01/09/25 15:30 01/09/25 16:30 01/09/25 17:00 Temperature Temperature Source Pulse Rate 59 L 68 75 Pulse Rate [Right] Respiratory Rate 17 14 17 Blood Pressure 139/75 122/60 125/71 Blood Pressure [Right Arm] Blood Pressure Mean 85 Blood Pressure Mean [Right Arm] 02 Sat by Pulse Oximetry 99 99 99 Oxygen Delivery Method Room Air 01/09/25 17:30 Temperature Temperature Source Pulse Rate 64 Pulse Rate [Right] Respiratory Rate 22 Blood Pressure 116/61 Blood Pressure [Right Arm] Blood Pressure Mean 79 Blood Pressure Mean [Right Arm] 02 Sat by Pulse Oximetry 98 Oxygen Delivery Method Room Air Lab Data Lab Results 01/09/25 15:00: WBC 7.1, RBC 5.23, Hgb 13.6, Hct 43.6, MCV 83.4, MCH 26.0 L, M CHC 31.2 L, RDW 14.5, Plt Count 189, MPV 10.8 H, Neut % (Auto) 52.5, Lymph % (Auto) 32.8, [place] % (Auto) 9.5 H, Eos % (Auto) 3.5, Baso % (Auto) 1.4, Neut # (Auto) 3.7, Lymph # (Auto) 2.3, [place] # (Auto) 0.7, Eos # (Auto) 0.3, Baso # (Auto) 0.1, Sodium 143, Potassium 3.8, Chloride 107, Carbon Dioxide 24, Anion Gap 15.8 H, BUN 9, Creatinine 0.70, Estimated Creat Clear 99, Estimated GFR 96, Est GFR ( Amer) 117, Glucose 90, Calcium 9.3, Total Bilirubin 0.5, AST 22, ALT 18, Alkaline Phosphatase 108, Troponin I < 0.01, Total Protein 8.4 H, Albumin 4.5, Globulin 3.9 H, Albumin/Globulin Ratio 1.2 01/09/25 16:09: Urine Color Yellow, Urine Appearance Clear, Urine pH 7.0, Ur Specific [place] 1.020, Urine Protein Negative, Urine Glucose (UA) Negative, Urine Ketones Negative, Urine Blood Trace-i, Urine Nitrate Negative, Urine Bilirubin Negative, Urine Urobilinogen 0.2, Ur Leukocyte Esterase Negative, Urine RBC Occasional, Urine WBC 5-10, Ur Squamous Epith Cells 5-10, Urine Bacteria 4+, Urine Mucus 2+, Urine HCG, Qual Negative 01/09/25 17:29: Troponin I < 0.01 01/09/25 15:00 01/09/25 15:00 Orders (Tests/Meds): ED MEDICATIONS Discontinued Medications Generic Name Dose Route Start Last Admin Trade Name Jamilq PRN Reason Stop Dose Admin Acetaminophen 1,000 mg 01/09/25 14:28 01/09/25 15:04 Acetaminophen 500mg Tab PO 01/09/25 14:29 1,000 mg ONCE ONE Administration Sodium Chloride 500 mls @ 999 mls/hr 01/09/25 14:28 01/09/25 15:03 Sod Chlor 0.9% 1000ml Bag IV 01/09/25 14:58 999 mls/hr .Q31M ONE Administration Iopamidol 75 ml 01/09/25 17:10 01/09/25 17:11 Iopamidol-370 (76%);100ml Bottle IV 01/09/25 17:11 75 ml ONCE ONE Administration Ketorolac Tromethamine 15 mg 01/09/25 18:19 01/09/25 18:30 Ketorolac 30mg/Ml Vial IV 01/09/25 18:20 15 mg ONCE ONE Administration Sodium Chloride 10 ml 01/09/25 17:10 01/09/25 17:12 Sodium Chloride 0.9% 10ml Syr (Rad Only) IV 01/09/25 17:11 10 ml ONCE ONE Administration ORDERS Category Date Time Status CT abdomen pelvis w con Stat Cat Scan 01/09/25 16:40 Completed CXR --portable [XR chest portable] Stat Exams 01/09/25 14:28 Taken CBC w/Auto Diff [Complete Blood Count Auto Diff] Stat Lab 01/09/25 15:00 Completed CMP [Comprehensive Metabolic Panel] Stat Lab 01/09/25 15:00 Completed Trop I [Troponin I] Stat Lab 01/09/25 15:00 Completed Troponin I Q3H Lab 01/09/25 17:29 Completed Troponin I Q3H Lab 01/09/25 20:30 Ordered Urinalysis and Microscopic Stat Lab 01/09/25 16:09 Completed Urine , HCG Qual. Stat Lab 01/09/25 16:09 Completed Urine Culture Stat Micro 01/09/25 16:09 Received Medical Decision Narrative: In summary, patient is a 34-year-old female PMHx psychogenic nonepileptic seizures, hyperlipidemia, anxiety, diabetes type 2 who presents to the ED for complaints of headache, chest pain, pelvic exam that started approximately 3 days ago. Denies . Denies any additional symptoms. Patient states that all of her symptoms are intermittent. She does not have any neurologic symptoms associated with her headache. Denies fever, chills, body aches, visual changes, posterior neck pain, shortness of breath. Differential diagnosis include , ectopic , ovarian cyst, mass, infectious process, among others. Discussed with patient we will proceed with CT scan of the abdomen pelvis and labs. I do not feel inclined to scan her head as her headache has no red flag symptoms. Labs reviewed. CBC unremarkable for any leukocytosis, stable H&H. CMP remarkable for an anion gap 15.8 otherwise no actionable abnormalities. negative. CT abdomen pelvis unremarkable for any acute findings, right lower lobe nodule noted, discussed with patient she will need follow-up for this. Upon reassessment, patient's condition has improved. She states that her headache has almost resolved. She is no longer having chest pain. She remains hemodynamically stable. She states she does not want any more medication while in the ED. Given this, I feel that patient is safe to be discharged home at this time. Advised patient she will need to follow-up with her PCP within 48 hours. We discussed return precautions to the ED and patient verbalized understanding. Critical Care Critical Care Time Critical Care Time: No
[2025-01-09] MEDS: 0.9 % SODIUM CHLORIDE 1000ML 500 ML 999 ML IV (15:03)
[2025-01-09] MEDS: ACETAMINOPHEN 500MG TAB 1000 MG PO (15:04)
[2025-01-09 15:12] LABS: Hematocrit 43.6 % (37.0-47.0); Hemoglobin 13.6 g/dL (12.2-16.2); Immature Granulocytes % 0.3 %; Mean Corpuscular HGB Conc 31.2 g/dL (31.8-35.4); Mean Corpuscular Hemoglobin 26.0 pg (27.0-31.2); Mean Corpuscular Volume 83.4 fl (81-99); Nucleated Red Blood Cells % 0 %; Platelet Count 189 K/mm3 (142-424); Red Blood Count 5.23 M/mm3 (4.20-5.40); Red Cell Distribution Width-SD 43.6 fL; White Blood Count 7.1 K/mm3 (4.8-10.8)
[2025-01-09 15:23] LABS: Albumin Level 4.5 g/dl (3.5-5.0); Chloride 107 mmol/L (98-107); Potassium 3.8 mmoL/L (3.5-5.1); Sodium 143 mmol/L (136-145)
[2025-01-09 15:26] LABS: Alanine Aminotransferase 18 U/L (12-78); Albumin/Globulin Ratio 1.2 (1.1-1.8); Alkaline Phosphatase 108 U/L (38-126); Anion Gap 15.8 mEq/L (5-15); Aspartate Amino Transferase 22 U/L (14-36); Bilirubin,Total 0.5 mg/dl (0.2-1.3); Blood Urea Nitrogen 9 mg/dl (7-17); Carbon Dioxide 24 mmol/L (22.0-30.0); Creatinine Clearance Estimated 99 mL/min (50-200); Creatinine,Serum 0.70 mg/dl (0.52-1.04); Estimated Glomerular Filt Rate 96 ml/min (>60); GFR (African American) 117 ML/MIN (>60); Globulin 3.9 g/dL (1.3-3.2); Total Protein,Serum 8.4 g/dl (6.3-8.2)
[2025-01-09 15:27] LABS: Calcium 9.3 mg/dl (8.4-10.2); Glucose 90 mg/dl (74-100)
[2025-01-09 15:39] LABS: Troponin I < 0.01 ng/ml (0.00-0.034)
[2025-01-09 16:19] LABS: Microscopic, Urine URINE MICROSCOPIC (MICROSCOPIC)
[2025-01-09 16:23] LABS: Bilirubin,Urine Negative (Negative); Color,Urine YELLOW (Yellow); Glucose,Urine (UA) Negative (Negative); Ketones,Urine Negative (Negative); Leukocyte Esterase,Urine Negative (Negative); PH,Urine 7.0 (5.0-8.5); Protein,Urine Negative (Negative); Specific Gravity, Urine 1.020 (1.005-1.030); Urobilinogen,Urine 0.2 EU/dl (0.2)
[2025-01-09 16:28] LABS: Urine Pregnancy, HCG Qual. Negative (Negative)
--- NOTE | 2025-01-09 16:40 | CT_ITS ---
PROCEDURE INFORMATION: Exam: CT Abdomen And Pelvis With Contrast Exam date and time: 01/09/2025 5:11 PM Age: 34 years old Clinical indication: Abdominal pain; Additional info: Rlq abd pain TECHNIQUE: Imaging protocol: Computed tomography of the abdomen and pelvis with contrast. Radiation optimization: All CT scans at this facility use at least one of these dose optimization techniques: automated exposure control; mA and/or kV adjustment per patient size (includes targeted exams where dose is matched to clinical indication); or iterative reconstruction. Contrast material: ISOVUE; Contrast volume: 75 ml; Contrast route: IV; COMPARISON: CR XR CHEST PORTABLE 01/09/2025 4:29 PM FINDINGS: Lungs: 5.5 mm right lower lobe lateral basilar segment solid pulmonary nodule. Heart: Minimal pericardial effusion. Liver: Hepatomegaly. No mass. Gallbladder and biliary ducts: Cholecystectomy. Pancreas: Normal. No ductal dilation. Spleen: Few small calcified granulomas. No splenomegaly. Adrenal glands: Normal. No mass. Kidneys and ureters: Normal. No hydronephrosis. Stomach and bowel: Unremarkable. No obstruction. No mucosal thickening. Appendix: No evidence of appendicitis. Intraperitoneal space: Unremarkable. No free air. No significant fluid collection. Vasculature: Unremarkable. No abdominal aortic aneurysm. Lymph nodes: Unremarkable. No enlarged lymph nodes. Urinary bladder: Unremarkable as visualized. Reproductive: Unremarkable as visualized. Bones/joints: Degenerative changes. No acute fracture. Soft tissues: Small fat containing umbilical hernia. IMPRESSION: 1. No acute findings. No evidence of acute appendicitis. 2. 5.5 mm right lower lobe lateral basilar segment solid pulmonary nodule. For patients at low risk (minimal or absent history of smoking and of other known risk factors), no routine follow-up is indicated. For patients at high risk (history of smoking or of other known risk factors), consider optional CT Chest at 12 months. (Reference: Sera) REFERENCES: Sera Guzman, et al. Guidelines for Management of Incidental Pulmonary Nodules Detected on CT Images: From the Fleischner Society 2017. Radiology. 2017;284(1):228-243.
[2025-01-09 16:42] LABS: Bacteria,Urine 4+ /lpf; Mucus,Urine 2+ /lpf; RBC,Urine Occasional #/hpf (0-3)
--- NOTE | 2025-01-09 17:08 | PC.NURSE ---
with radiology to scan
[2025-01-09] MEDS: IOPAMIDOL-370 (76%);100ML BOTTLE 75 ML IV (17:11)
[2025-01-09] MEDS: SODIUM CHLORIDE 0.9% 10ML SYR (RAD ONLY) 10 ML IV (17:12)
[2025-01-09 18:02] LABS: Troponin I < 0.01 ng/ml (0.00-0.034)
[2025-01-09] MEDS: KETOROLAC 30MG/ML VIAL 15 MG IV (18:30)
== END 2025-01-09 18:59 | disposition home or self-care (01) ==
PROVIDERS: Nurse Practitioner; Emergency Provider Emergency Medicine; PCP Nurse Practitioner
DX: R07.9 Chest pain, unspecified (principal); R51.9 Headache, unspecified; R91.1 Solitary pulmonary nodule
CPT/HCPCS: 71045; 74177; 80053; 81001; 81025; 84484; 85025; 87086; 93005; 96374; 99285; J1885; J7030; Q9967

== ENCOUNTER 2025-02-23 13:03 | Outpatient (CLI) | payer OTHER, SELFPAY ==
--- OUTSIDE RECORDS SUMMARY | 2025-02-23 13:07 | XMS_ITS | Clinical Summary ---
Author Organization [facility] Address [address] [place] [address] Care Team Providers Care Peoplesoft Name Role Phone Pcp, No Primary Care [...] therelease of HIV test results or diagnoses. [id number] Allergies Active Allergy Reactions Criticality Noted Date Comments Banana Anaphylaxis High 04/20/2022 Chocolate Flavor Other (See Comments) 2 SHOEMAKER [place] And Derivatives Anaphylaxis High 04/20/2022 Throat swells [...] Date Last Done Comments Hepatitis C Screening (YeHivehart) 1991 Depression Screening 10/24/2009 HIV Screening 10/24/2009 Immunization: DTaP/Tdap/Td ( 1 - Tdap) 10/24/2010 Immunization: Hepatitis B (1 of 3 - 19+ 3-dose series) 10/24/2010 Cervical Cancer Screening/Pa p Smear (MyChart) 10/24/2021 Alcohol Misuse Screening 03/09/2023 03/09/2022 Immunization: COVID-19 ( season) 2024 Immunization: Influenza (MyC chawla) (#1) 2025 Immunization: Pneumococcal Aged Out N o longer eligible based on patient's age to complete this topic Insurance [facility] Address: [facility] [id number] [place] [phone] Advance Directives For more information, please contact: [phone] * Full Code (Latest Code Status on File) Date Activated Date Inactivated Comments 04/20/2022 2:02 PM 04/22/2022 9:23 PM Care Teams Peoplesoft Relationship Specialty Start Date End Date Pcp, No No Address PCP - General 02/09/22
== END 2025-02-23 23:59 | disposition home or self-care (01) ==
PROVIDERS: PCP Nurse Practitioner; Visit Provider Physician Assistant
DX: I49.1 Atrial premature depolarization (principal); I49.3 Ventricular premature depolarization
CPT/HCPCS: 93270

== ENCOUNTER 2025-06-05 09:00 | Outpatient (CLI) | payer OTHER, SELFPAY ==
[2025-06-05 15:07] LABS: Hematocrit 39.6 % (37.0-47.0); Hemoglobin 12.3 g/dL (12.2-16.2); Immature Granulocytes % 0.3 %; Mean Corpuscular HGB Conc 31.1 g/dL (31.8-35.4); Mean Corpuscular Hemoglobin 25.8 pg (27.0-31.2); Mean Corpuscular Volume 83.0 fl (81-99); Nucleated Red Blood Cells % 0 %; Platelet Count 149 K/mm3 (142-424); Red Blood Count 4.77 M/mm3 (4.20-5.40); Red Cell Distribution Width-SD 42.3 fL; White Blood Count 8.9 K/mm3 (4.8-10.8)
[2025-06-05 16:10] LABS: Albumin Level 3.8 g/dl (3.5-5.0); Chloride 107 mmol/L (98-107)
[2025-06-05 16:11] LABS: 25-OH Vitamin D, Total 79.1 ng/mL (30-100); Potassium 4.1 mmoL/L (3.5-5.1); Sodium 139 mmol/L (136-145)
[2025-06-05 16:13] LABS: Alanine Aminotransferase 19 U/L (12-78); Albumin/Globulin Ratio 1.1 (1.1-1.8); Alkaline Phosphatase 101 U/L (38-126); Anion Gap 17.1 mEq/L (5-15); Aspartate Amino Transferase 24 U/L (14-36); Bilirubin,Total 0.8 mg/dl (0.2-1.3); Blood Urea Nitrogen 10 mg/dl (7-17); Carbon Dioxide 19 mmol/L (22.0-30.0); Creatinine,Serum 0.60 mg/dl (0.52-1.04); Estimated Glomerular Filt Rate 115 ml/min (>60); GFR (African American) 139 ML/MIN (>60); Globulin 3.5 g/dL (1.3-3.2); Total Protein,Serum 7.3 g/dl (6.3-8.2)
[2025-06-05 16:14] LABS: Calcium 8.8 mg/dl (8.4-10.2); Cholesterol 160 mg/dl (140-200); Glucose 76 mg/dl (74-100); HDL Cholesterol 47 mg/dl (40-60); Triglycerides 68 mg/dl (30-150)
[2025-06-05 16:45] LABS: Thyroid Stimulating Hormone 1.34 uIU/mL (0.465-4.68)
[2025-06-05 16:57] LABS: Hemoglobin A1C 5.5 % (4.0-6.0)
[2025-06-05 18:01] LABS: Vitamin B12 492 pg/mL (239-931)
--- OUTSIDE RECORDS SUMMARY | 2025-06-06 10:05 | XMS_ITS | Clinical Summary ---
Author Organization [facility] Address [address] [place] [address] Phone Care Team Providers Care Grocery Clerk Checking Name Role Phone Shaw Avitia Primary Care Provider [phone] Kristy Reese MD Unavailable [phone] Allergies Active Allergy Reactions Criticality Noted Date Comments Adhesive Tape-Silicones Rash High 03/18/2016 Banana Swelling 01/11/2020 Lips and throat Lactase Itching 05/10/2015 Latex Swelling 01/11/2020 Shellfish Containing Products Anaphylaxis,Itching High 03/04/2016 Lip swelling Sulfa (Sulfonamide Antibiotics) Other (See Comments) 04/20/2012 Unsure of reaction. Happened as Yeast, Dried Itching 05/10/2015 Medications * This [...] 12/22/2012 N/A Surgeon: Mulu Rivera MD; Location: [facility]; Service: TYMPANOSTOMY TUBE PLACEMENT SECTION 07/02/2015 N/A REPEAT SECTION (39) low transverse uterine incision @ 0851; Surgeon: Yared Motley MD; Location: [facility]; Service: Gynecology Medical devices from this surgery are in the Medical Devices section. CHOLECYSTECTOMY, LAPAROSCOPIC 03/12/2016 N/A LAPAROSCOPIC CHOLECYSTECTOMY; Surgeon: Reza Hodges MD; Location: [facility]; Service: General Medical History [...] 9 KYLAH NICHOLS, Mulu moon MD Delivery Location:[facility] 2014 Term 39w 0d 0h 01m 0h 01m 6 lb 14 oz (3.118 kg) F [employer] MAKER Spinal N Livin g 8 9 Fco Motley MD Complications:Status post re peat low transverse section Delivery Location:[facility] Comments:none Last Filed Vital Signs Vital Sign [...] 12/20/2014, Additional history exists COVID-19 Vaccine ( - season) 2025 Influenza Vaccine (#1) 2025 08/17/2006 DTaP/TDaP/Td (8 - Td or Tdap) 05/30/2025 05/30/2015, 12/23/2012, 12/30/1995, Additional history exists Diabetic Eye Exam Discontinued 04/24/2025 Meningococcal B Vaccine Aged Out No l [...] Angela [employer] Devices Implanted Type Area Pbx Inspector Device Identifier Shelf Expiration Date Model / Serial / Lot Interceed Adhesive Barrier 3 X 4 - [id number] Implanted:Qty: 1 on 07/02/2015 by Yared Motley MD at [facility] N/A: Abdomen J&J:ETHICON:JEYSON ANDERSON 09/09/2019 [id number] / / [id number] Procedures Procedure Name Priority Date/Time Associated Diagnosis Comments HM DIABETES EYE EXAM Routine 04/24/2025 9:47 AM EDT FORMULATION CHEMIST CYTOLOGY REQUEST (PAP ONLY) Routine 01/11/2020 9:40 AM EDT Well woman exam with routine gynecological exam from Last 3 Months or Most Recently Relevant to Health Maintenance Results * DIABETES EYE EXAM (04/24/2025 9:47 AM EDT) us Historical Provider Generic HEALTH MAINTENANCE F inal Result [facility] OFFICE * FORMULATION CHEMIST CYTOLOGY REQUEST (PAP ONLY) (01/11/2020 9:40 AM EDT) CASE REPORT Gynecologic Cytology Report Case: [id number] Authorizing Provider: Nancy Boland APRN Collected: 01/11/2020939 Ordering Location: [facility] Edg Received: 01/11/2020939 First Screen: Sarah Quiroz CT Specimen: LIQUID-BASED PAP - CERVICAL/ENDOCERV ICAL, Cervix, Endocervical 01/15/2020 10:26 AM EDT [facility] PAP FINAL DIAGNOSIS Negative for intraepithelial lesion or malignancy 01/15/2020 10:26 AM EDT [facility] at 1026 EDT MICROSCOPIC DESCRIPTION Microscopic examination is performed and the findings corroborate the diagnosis. 01/15/2020 10:26 AM EDT [facility] PAP SMEAR ADEQUACY Satisfactory for evaluation 01/15/2020 10:26 AM EDT [facility] ENDOCERVICAL T-ZONE Transformation zone absent. 01/15/2020 10:26 AM EDT [facility] EMBEDDED IMAGES 0 10:26 AM EDT [facility] PAP DISCLAIMER The Pap Smear is a screening test that aids in the detection of cervical cancer and cancer precursors. Both false positive and false negative results can occur. The test should be used at regular intervals, and positive results should be confirmed before definitive therapy. Processed using the ThinPrep Pin Cleaner Automated cytology screening device ([id number]). 01/15/2020 10:26 AM EDT [facility] Thin Prep ENDOCERVICAL STRUCTURE / Unknown 01/11/2020 9:40 AM EDT 01/11/2020 9:40 AM EDT Nancy Boland PACKAGE REINSPECTOR CYTOLOGY ORDERABLES Final Result Performing Organization Address City/State/[facility] Co de Phone Number [place] [address] from Last 3 Months or Most Recently Relevant to Health Maintenance Insurance [employer] [id number] Advance Directives For more information, please contact: [phone] * Full Code (Latest Code Status on File) Date Activated Date Inactivated Comments 07/02/2015 10:36 AM 07/04/2015 7:07 PM * Full Code Date Activated Date Inactivated Comments 12/22/2012 6:54 AM 12/24/2012 5:16 PM Care Teams Grocery Clerk Checking Relationship Specialty Start Date End Date Shaw Avitia [address] [place] [address] [address] [place] [address] PCP - General Family Medicine 10/11/12 Kristy Reese MD [address] [place] [address] Medical Oncologist Internal Medicine-Medical Oncology 09/08/19
--- OUTSIDE RECORDS SUMMARY | 2025-06-06 10:05 | XMS_ITS ---
Author Organization Unknown ENCOUNTERS Encounter Performer Location Date Diagnosis Diagnosis Status Emergency Daphney Kohli [place] [address] [id number] ANA LUISA Pre Admit Elizabeth Rivera [address] [place] [address] [id number] Emergency Marylin Blue [place] [address] [place] [address] [id number] ANA LUISA *Note: Encounters from your own facility or health system may be excluded. Allergies, Adverse Reactions, Alerts Allergen Type Severity Identification Date shellfish derived drug allergy 1 20250102 Sulfa (Sulfonamide Antibiotics) drug allergy 1 [id number] lamotrigine drug allergy 1 29098312 latex drug allergy 1 35901229 sertraline drug allergy 4 37890579 adhesive drug allergy 1 [id number] Medications Name Date Quantity Days Supplied GPI Number
--- OUTSIDE RECORDS SUMMARY | 2025-06-06 10:05 | XMS_ITS | Clinical Summary ---
Author Organization [facility] Address [address] [place] [address] Care Team Providers Care Family Readiness Support Assistant Name Role Phone Pcp, No Primary Care [...] therelease of HIV test results or diagnoses. [id number] Allergies Active Allergy Reactions Criticality Noted Date Comments Banana Anaphylaxis High 04/20/2022 Chocolate Flavor Other (See Comments) 2 SHOEMAKER [place] And Derivatives Anaphylaxis High 04/20/2022 Throat swells [...] 04/20/2022 6:34 PM EDT Plan of Treatment Not on file Insurance [facility] Address: [facility] [id number] [place] [address] Advance Directives For more information, please contact: [phone] * Full Code (Latest Code Status on File) Date Activated Date Inactivated Comments 04/20/2022 2:02 PM 04/22/2022 9:23 PM Care Teams Family Readiness Support Assistant Relationship Specialty Start Date End Date Pcp, No No Address PCP - General 02/09/22
== END 2025-06-05 23:59 ==
LOC: LAB.DROPOF 06-06 09:56
PROVIDERS: PCP Nurse Practitioner; Visit Provider Nurse Practitioner
DX: E55.9 Vitamin D deficiency, unspecified (principal); J45.909 Unspecified asthma, uncomplicated; F41.8 Other specified anxiety disorders; Z86.39 Personal history of other endocrine, nutritional and metabolic disease; E78.5 Hyperlipidemia, unspecified
CPT/HCPCS: 80053; 80061; 82306; 82607; 83036; 84443; 85025